=== PATIENT | female | born 1955 | race Caucasian/White ===

== ENCOUNTER 2017-01-29 22:13 | Inpatient (IN) | payer OTHER ==
[2017-01-29] MEDS ORDERED: Aspirin Low Dose CHEW TAB* 81 MG PO ONE (23:00)
[2017-01-29 23:08] LABS: Hematocrit 19 % (35-47); Mean Corpuscular HGB Conc 31 g/dl (31-36); Mean Corpuscular Hemoglobin 28 pg (27-31); Mean Platelet Volume 9 um3 (7.4-10.4); Red Cell Distribution Width 20 % (10.5-15)
[2017-01-29] MEDS ORDERED: Nitroglycerin TAB 0.4 MG* 0.4 MG TAB SL ONE (23:13)
[2017-01-29 23:23] LABS: Comments Flag Yes
[2017-01-29 23:25] LABS: Mean Corpuscular Volume 91 fL (80-97); White Blood Count 12.3 10^3/ul (3.5-10.8)
[2017-01-29 23:26] LABS: Hemoglobin 5.9 g/dl (12.0-16.0)
[2017-01-29 23:27] LABS: Add Diff/Slide Review? Slide Review Added
[2017-01-29 23:37] LABS: ALT 29 U/L (7-52); AST 66 U/L (13-39); Albumin 3.9 g/dL (3.2-5.2); Alkaline Phosphatase 59 U/L (34-104); Anion Gap 10 mmol/L (2-11); BUN/Creatinine Ratio 28.2 (8-20); Blood Urea Nitrogen 22 mg/dL (6-24); CO2 Carbon Dioxide 21 mmol/L (22-32); Calcium 9.2 mg/dL (8.6-10.3); Chloride 98 mmol/L (101-111); EGFR African American 95.9 (>60); EGFR Non-African American 74.6 (>60); Globulin 3.7 g/dL (2-4); Glucose 238 mg/dL (70-100); Magnesium 1.8 mg/dL (1.9-2.7); Potassium 3.9 mmol/L (3.5-5.0); Sodium 129 mmol/L (133-145); Total Protein 7.6 g/dL (6.4-8.9)
--- NOTE | 2017-01-29 23:37 | ED ---
Annetta Lake Alfonso, scribed for Antoni Campuzano MD on 01/29/17 at 2302 . Complex/Multi-Sys Presentation - HPI Summary HPI Summary: This patient is a 61 year old female presenting to [facility] c/o a cough for 3 days. She reports "not feeling well generally." Symptoms aggravated by exertion and alleviated by nothing. She reports CP secondary to cough which radiates to her shoulder blades, syncopal episodes, headaches, nausea, and back pain. PMHx of HTN. - History Of Current Complaint Chief Complaint: EDGeneral Time Seen by Provider: 01/29/17 22:56 Hx Obtained From: Patient Onset/Duration: Sudden Onset, Lasting Days - 3 days, Still Present Timing: Constant, Days - 3 days Severity Currently: Moderate Severity Initially: Moderate Aggravating Factor(s): Exertion Alleviating Factor(s): Nothing Associated Signs And Symptoms: Positive: Syncope, Headache, Cough, Chest Pain - Secondary to cough and radiation to shoulder blades, Nausea, Back Pain - Allergies/Home Medications Allergies/Adverse Reactions: Allergies Allergy/AdvReac Type Severity Reaction Status Date / Time No Known Allergies Allergy Verified 01/29/17 22:34 PMH/Surg Hx/FS Hx/Imm Hx Endocrine/Hematology History: Reports: Hx Diabetes - type 2 Cardiovascular History: Reports: Hx Hypercholesterolemia, Hx Hypertension Denies: Hx Angina, Hx Coronary Artery Disease, Hx Myocardial Infarction, Hx Valvular Heart Disease Respiratory History: Reports: Hx Asthma Denies: Hx Chronic Obstructive Pulmonary Disease (COPD) History: Denies: Hx Dialysis Sensory History: Reports: Hx Contacts or Glasses Opthamlomology History: Reports: Hx Contacts or Glasses - Cancer History Hx Chemotherapy: No Hx Radiation Therapy: No Infectious Disease History: No Infectious Disease History: Reports: Hx Hepatitis - hypercholesterolemia Denies: Traveled Outside the [place] in Last 30 Days - Family History Known Family History: Positive: Diabetes - Social History Alcohol Use: Rare Substance Use Type: Reports: None Smoking Status (MU): Never Smoked Tobacco Review of Systems Positive: Chest Pain - CP secondary to cough which radiates to her shoulder blades Positive: Cough Positive: Nausea Positive: Arthralgia - Back pain Positive: Headache, Syncope All Other Systems Reviewed And Are Negative: Yes Physical Exam Triage Information Reviewed: Yes Vital Signs On Initial Exam: Initial Vitals Temp Pulse Resp BP Pulse Ox 97.2 F 102 16 161/69 99 01/29/17 22:25 01/29/17 22:25 01/29/17 22:25 01/29/17 22:25 01/29/17 22:25 Vital Signs Reviewed: Yes Appearance: Positive: No Pain Distress - pale appearing Skin: Positive: Pale Head/Face: Positive: Normal Head/Face Inspection Eyes: Positive: STEVE ENT: Positive: Hearing grossly normal Neck: Positive: Supple Respiratory/Lung Sounds: Positive: Breath Sounds Present Cardiovascular: Positive: RRR Abdomen Description: Positive: Nontender, No Organomegaly, Soft Bowel Sounds: Positive: Present Musculoskeletal: Positive: Strength/ROM Intact Neurological: Positive: Sensory/Motor Intact Psychiatric: Positive: Affect/Mood Appropriate - Morton Coma Scale Coma Scale Total: 15 Diagnostics - Vital Signs Vital Signs Temp Pulse Resp BP Pulse Ox 01/29/17 22:25 97.2 F 102 16 161/69 99 - Laboratory Lab Results: Lab Results 01/29/17 01/29/17 Range/Units 22:58 22:58 WBC 12.3 H (3.5-10.8) 10^3/ul RBC 2.10 L (4.0-5.4) 10^6/ul Hgb 5.9 L* (12.0-16.0) g/dl Hct 19 L (35-47) % MCV 91 (80-97) fL MCH 28 (27-31) pg MCHC 31 (31-36) g/dl RDW 20 H (10.5-15) % Plt Count 185 (150-450) 10^3/ul MPV 9 (7.4-10.4) um3 Neut % (Auto) 61.0 (38-83) % Lymph % (Auto) 28.7 (25-47) % Gray % (Auto) 9.0 (1-9) % Eos % (Auto) 0.6 (0-6) % Baso % (Auto) 0.7 (0-2) % Absolute Neuts (auto) 7.5 (1.5-7.7) 10^3/ul Absolute Lymphs (auto) 3.5 (1.0-4.8) 10^3/ul Absolute Monos (auto) 1.1 H (0-0.8) 10^3/ul Absolute Eos (auto) 0.1 (0-0.6) 10^3/ul Absolute Basos (auto) 0.1 (0-0.2) 10^3/ul Absolute Nucleated RBC 0.23 10^3/ul Nucleated RBC % 1.9 INR (Anticoag Therapy) 1.19 H (0.89-1.11) Result Diagrams: 01/29/17 22:58 01/29/17 22:58 Lab Statement: Any lab studies that have been ordered have been reviewed, and results considered in the medical decision making process. - Radiology CXR Radiology Interpretation Completed By: ED Physician - EKG 2240 Cardiac Rate: NL - BPM 98 EKG Rhythm: Sinus Rhythm ST Segment: Non-Specific - depression v3 Re-Evaluation - Re-Evaluation First Eval Re-Evaluation Time: 23:29 Comment: Discussed lab results and admission with patient. Pt is agreeable. case d/w hospitalist Complex Multi-Symp Course/Dx - Diagnoses Provider Diagnoses: ACS (acute coronary syndrome), Anemia - Physician Notifications Discussed Care Of Patient With: Tapan Collazo Time Discussed With Above Provider: 23:35 Instructed by Provider To: Admit As Inpatient - Dr. Collazo (Hospitalist) agrees to admit the patient. - Critical Care Time Critical Care Time: 30-74 min Discharge - Discharge Plan Condition: Guarded Disposition: ADMITTED TO [facility] The documentation as recorded by the Annetta rodriguez Alfonso accurately reflects the service I personally performed and the decisions made by me, Antoni Campuzano MD.
[2017-01-29 23:44] LABS: Troponin I 3.97 ng/mL (<0.04)
[2017-01-29 23:48] LABS: Hypochromasia 3+; Polychromasia 1+
[2017-01-29 23:49] LABS: Immature Retic Fraction 0.69; Tear Drop Cells 1+
--- NOTE | 2017-01-29 23:51 | HP ---
H&P (Free Text) History and Physical: PCP: Allison Pinto MD Date/Time of Evaluation: 01/29/2017 2345 CC: malaise & chest pain HPI: Mrs Moreira is a 61YO female HX CAD, DM2, iron deficiency anemia who presents reporting onset morning of progressive fatigue and light- headedness like she may "pass out" with activity. She has had chest pressure radiating to the L shoulder in the past. This began again today, but would not go away as it has in the past. Of note she had a cardiac cath via Carlos Roberts MD cardiology 10/2016 revealing severe, subtotal RC occlusion with collaterals, a 20-30% distal left main lesion, and a 30% proximal circumflex lesion treated medically. EF 55%, no notable valvular disease. She has some SOB (not beyond her baseline) and nausea, but denies F/C, sweats, palpitations, abdominal pain, black/bloody stools, or other issues. She is currently chest pain free. Additionally, she underwent EGD/colonscopy & capsule endoscopy within the last month revealing only gastric erosions which appeared more significant on capsule endoscopy than they had on the earlier EGD. She denies taking routing aspirin, ibuprofen, or naproxen. Although, she did take one dose of naproxen today for a headache. She denies alcohol consumption. As her vitals are good, particularly her blood pressure is mildly hypertensive with only a mild tachycardia in the 100s in the setting of no melena or bloody stools, this does not appear to be an active, high flow bleed and I do not feel she requires transfer to another facility for emergency GI consult. Will admit to ICU for NSTEMI & subacute severe anemia, transfuse 2units pRBCs, give crystalloid support, & pantoprazole bolus/GTT. She was given aspirin in the ED for her chest pain prior to lab returning her level of anemia, but we will not be able to utilize heparin GTT or beta tyler due to the risk of precipitating a more active GI bleed or hypotension, respectively. PMedHx CAD asthma DM2 HTN HLD chronic L rotator cuff tear GERD depression/anxiety Ambulatory Orders Nursing to reconcile. Albuterol [Proair Hfa] 2 puff INH Q4H PRN 10/23/12 Amitriptyline TAB* [Elavil TAB*] 25 mg PO BEDTIME PRN 10/23/12 Fluticasone HFA 220 mcg(NF) [Flovent Hfa 220 Mcg(NF)] 2 puff .SEE ORDER BID Metoprolol Succinate XL TAB* [Toprol XL TAB*] 50 mg PO DAILY 10/23/12 Montelukast Sodium TAB* [Singulair 10 MG TAB*] 10 mg PO BEDTIME 10/23/12 Multiple Vitamin [Multi-Vitamins] 1 tab PO DAILY 10/23/12 Rosuvastatin Calcium [Crestor] 10 mg PO BEDTIME 10/23/12 Diltiazem HCl 120 mg PO DAILY 10/26/16 Estrogens/Medroxypr 0.3(NF) [Prempro 0.3/1.5 (NF)] 1 tab PO SEE INSTRUCTIONS Lantus 40 units SUBCUT BEDTIME 10/26/16 Liraglutide [Victoza] 1.8 ml SUBCUT DAILY 10/26/16 Metoprolol Succinate [Toprol Xl] 25 mg PO BEDTIME 10/26/16 Probiotic Product [Probiotic] 1 tab PO DAILY 10/26/16 Tizanidine HCl 8 mg PO QID PRN 10/26/16 Acetaminophen TAB* [Tylenol TAB*] 650 mg PO Q4H PRN #0 tab 10/27/16 Fluticas/Salmet 115/21 HFA(NF) [Advair HFA 115/21 (NF)] 2 puff INH BID 10/27/16 Nitroglycerin TAB 0.4 MG* 0.4 mg SL Q5M PRN #0 tab 10/27/16 Omeprazole CAP* [Prilosec CAP* 20 MG] 20 mg PO DAILY 12/09/16 metFORMIN* [Glucophage 500 MG TAB *] 750 mg PO DAILY 12/09/16 Escitalopram (NF) [Lexapro (NF)] 10 mg PO DAILY 12/13/16 Isosorbide Mononitrate ER TAB* [Imdur ER TAB*] 30 mg PO DAILY 12/13/16 Mometasone 220 MCG MDI * [Asmanex 220 MCG MDI *] 1 puff INH DAILY 12/13/16 Allergies No Known Allergies Allergy (Verified 01/29/17 22:34) SurgHx L rotator cuff repair abdominoplasty x2 SocHx: no tobacco, alcohol, or recreational drug HX; lives with her ; 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; full code status FamHx: Mother: asthma, HTN, HLD; Father: Alzheimer's, HTN, HLD; paternal GM: passed in her 50s of CAD; otherwise positive for DM2 ROS: as above, otherwise reviewed and all were negative Constitutional: NAD, normally developed, overweight white female vitals: Vital Signs Temp 36.2 C 01/29/17 22:25 Pulse 105 01/29/17 23:00 Resp 11 01/29/17 23:00 BP 149/75 01/29/17 23:00 Pulse Ox 99 01/29/17 23:00 Intake & Output 01/28/17 01/29/17 01/29/17 23:59 11:59 23:59 Weight 81.647 kg HEENM: atraumatic; sclera/conjunctiva: non-icteric/clear; hearing: clinically intact; oropharynx: clear, mucosa tacky Neck: soft tissue: non-tender, no nuchal rigidity; thyroid: normal Pulmonary: clear to auscultation bilaterally, good aeration, no accessory muscle use CV: RR/RR, normal S1S2, no carotid bruit, no jugular venous distention, 2+ B DP/ PT, no edema Abdominal: soft, non-distended, non-tender, no rebound/guarding/rigidity, normoactive bowel sounds, no hepatosplenomegaly or masses, no costovertebral angle tenderness Musculoskeletal: general: grossly intact; gait: no ambulation 2nd severe anemia & NSTEMI Integumental: pale & warm; otherwise normal appearance and texture of exposed skin Psychiatric orientation: AA&O to PPS affect: calm mood: cooperative eye contact: good content: reliable responses: timely insight: fair to good Testing: Lab Results 01/29/17 01/29/17 01/29/17 Range/Units 22:58 22:58 22:58 WBC 12.3 H (3.5-10.8) 10^3/ul RBC 2.10 L (4.0-5.4) 10^6/ul RBC (Retic) 2.10 L (4.6-6.2) 10^6/ul Hgb 5.9 L* (12.0-16.0) g/dl Hct 19 L (35-47) % HCT (Retic) 19 L (35-47) % MCV 91 (80-97) fL MCH 28 (27-31) pg MCHC 31 (31-36) g/dl RDW 20 H (10.5-15) % Plt Count 185 (150-450) 10^3/ul MPV 9 (7.4-10.4) um3 Neut % (Auto) 61.0 (38-83) % Lymph % (Auto) 28.7 (25-47) % Reagan % (Auto) 9.0 (1-9) % Eos % (Auto) 0.6 (0-6) % Baso % (Auto) 0.7 (0-2) % Absolute Neuts (auto) 7.5 (1.5-7.7) 10^3/ul Absolute Lymphs (auto) 3.5 (1.0-4.8) 10^3/ul Absolute Monos (auto) 1.1 H (0-0.8) 10^3/ul Absolute Eos (auto) 0.1 (0-0.6) 10^3/ul Absolute Basos (auto) 0.1 (0-0.2) 10^3/ul Absolute Nucleated RBC 0.23 10^3/ul Nucleated RBC % 1.9 Normal RBC Morphology Not Reportable Polychromasia 1+ Hypochromasia 3+ Tear Drop Cells 1+ Retic Count, Calc 10.1 H (0.5-1.5) % Corrected Retic Count 4.3 H (0.5-1.5) % Retic Shift Factor 2.5 Retic Production Index 1.70 Immature Retic Fraction 0.69 Mean Retic Volume 128.4 INR (Anticoag Therapy) 1.19 H (0.89-1.11) Sodium 129 L (133-145) mmol/L Potassium 3.9 (3.5-5.0) mmol/L Chloride 98 L (101-111) mmol/L Carbon Dioxide 21 L (22-32) mmol/L Anion Gap 10 (2-11) mmol/L BUN 22 (6-24) mg/dL Creatinine 0.78 (0.51-0.95) mg/dL Est GFR ( Amer) 95.9 (>60) Est GFR (Non-Af Amer) 74.6 (>60) BUN/Creatinine Ratio 28.2 H (8-20) Glucose 238 H (70-100) mg/dL Lactic Acid (0.5-2.0) mmol/L Calcium 9.2 (8.6-10.3) mg/dL Magnesium 1.8 L (1.9-2.7) mg/dL Iron Pending TIBC Pending % Saturation Pending Unsat Iron Binding Pending Ferritin Pending Total Bilirubin 0.40 (0.2-1.0) mg/dL AST 66 H (13-39) U/L ALT 29 (7-52) U/L Alkaline Phosphatase 59 (34-104) U/L Lactate Dehydrogenase Pending Troponin I 3.97 H* (<0.04) ng/mL Total Protein 7.6 (6.4-8.9) g/dL Albumin 3.9 (3.2-5.2) g/dL Globulin 3.7 (2-4) g/dL Albumin/Globulin Ratio 1.1 (1-3) Vitamin B12 Pending Folate Pending Blood Type Antibody Screen Crossmatch 01/29/17 01/29/17 Range/Units 22:58 22:58 WBC (3.5-10.8) 10^3/ul RBC (4.0-5.4) 10^6/ul RBC (Retic) (4.6-6.2) 10^6/ul Hgb (12.0-16.0) g/dl Hct (35-47) % HCT (Retic) (35-47) % MCV (80-97) fL MCH (27-31) pg MCHC (31-36) g/dl RDW (10.5-15) % Plt Count (150-450) 10^3/ul MPV (7.4-10.4) um3 Neut % (Auto) (38-83) % Lymph % (Auto) (25-47) % Reagan % (Auto) (1-9) % Eos % (Auto) (0-6) % Baso % (Auto) (0-2) % Absolute Neuts (auto) (1.5-7.7) 10^3/ul Absolute Lymphs (auto) (1.0-4.8) 10^3/ul Absolute Monos (auto) (0-0.8) 10^3/ul Absolute Eos (auto) (0-0.6) 10^3/ul Absolute Basos (auto) (0-0.2) 10^3/ul Absolute Nucleated RBC 10^3/ul Nucleated RBC % Normal RBC Morphology Polychromasia Hypochromasia Tear Drop Cells Retic Count, Calc (0.5-1.5) % Corrected Retic Count (0.5-1.5) % Retic Shift Factor Retic Production Index Immature Retic Fraction Mean Retic Volume INR (Anticoag Therapy) (0.89-1.11) Sodium (133-145) mmol/L Potassium (3.5-5.0) mmol/L Chloride (101-111) mmol/L Carbon Dioxide (22-32) mmol/L Anion Gap (2-11) mmol/L BUN (6-24) mg/dL Creatinine (0.51-0.95) mg/dL Est GFR ( Amer) (>60) Est GFR (Non-Af Amer) (>60) BUN/Creatinine Ratio (8-20) Glucose (70-100) mg/dL Lactic Acid 2.7 H* (0.5-2.0) mmol/L Calcium (8.6-10.3) mg/dL Magnesium (1.9-2.7) mg/dL Iron TIBC % Saturation Unsat Iron Binding Ferritin Total Bilirubin (0.2-1.0) mg/dL AST (13-39) U/L ALT (7-52) U/L Alkaline Phosphatase (34-104) U/L Lactate Dehydrogenase Troponin I (<0.04) ng/mL Total Protein (6.4-8.9) g/dL Albumin (3.2-5.2) g/dL Globulin (2-4) g/dL Albumin/Globulin Ratio (1-3) Vitamin B12 Folate Blood Type A Positive Antibody Screen Pending Crossmatch See Detail ECG, personally reviewed: NSR rate 83, no ischemia CXR, personally reviewed: no acute process R&L heart cath (10/2016): CONCLUSION: 1. Severe coronary artery disease with subtotally occluded right coronary artery which was small vessel ostial to proximal segment with left to right collaterals. 2. Mild 20% to 30% noncritical disease of the distal left main and mild 30% disease of the proximal left circ. 3. Normal left ventricular systolic function with an EF 55%. 4. There is no significant aortic stenosis by hemodynamics. 5. No significant pulmonary arterial hypertension. 6. No intracardiac shunts. 7. Normal cardiac output state. 8. Hemostasis obtained with the Mynx device successfully to the right femoral artery. colonoscopy & EGD (12/2016): IMPRESSION: 1. Complete colonoscopy into the cecum. 2. Absolutely terrible quality preparation. 3. No lesions were seen, however, again absolutely terrible quality preparation. 4. Patient is due for a repeat colonoscopy in ten years from now; however, I would seriously consider not performing any further colonoscopies on her. The patient has severe adhesions and a very large abdominoplasty. This made the colonoscopy extremely difficult. 5. Complete upper endoscopy into the distal duodenum with biopsies. 6. Gastric erosion, status post biopsy. 7. I will follow-up on all the biopsies and report back to the patient at that time. capsule endoscopy (01/12/2017): PROCEDURE: After the small bowel capsule endoscopy procedure was explained to the patient and a small bowel x-ray did not reveal any strictures, the patient did present to the [facility] and swallowed the capsule. Approximately eight hours of recorded data were retrieved and viewed. The last [id number] hours appeared to be all in the colon and the images were very poor due to the poor quality of the preparation. The quality of the prep in the small bowel was suboptimal; however , no obvious lesions were seen. The one remarkable finding was in the stomach. There were numerous erosions within the stomach. She did have erosions on her EGD. These appeared more prominent this time around in the small bowel capsule endoscopy. I will need to discuss with the patient whether or not she is taking any nonsteroidals. I do see that her CLOtest from the upper endoscopy was negative. I will discuss these findings with the patient, but likely the source for her anemia is coming from the gastric erosions. Impression: 61F presenting with severe anemia suspect 2nd GI bleeding & NSTEMI DIAGNOSIS & PLAN Primary severe anemia, suspect GI bleeding : type, cross, & give 2units pRBCs : trend H&H : recent ECG w/ gastric erosions confirmed & ? worse on subsequent capsule endoscopy : pantoprazole bolus/GTT : recent C-scope with very poor prep, unrevealing NSTEMI, suspect 2nd demand due to severe anemia; HX CAD : aspirin given in ED : no heparin 2nd severe anemia : no beta tyler 2nd risk of hypotension w/ severe anemia : supplemental oxygen : telemetry : ICU monitoring : ECHO in AM : NPO x/ meds w/ sips of H2O, until continued clinical stability demonstrated : cardiology consult in AM : trend troponin acute cystitis w/ hematuria : IV ceftriaxone : urine CX Secondary asthma : PRN albuterol neb DM2 : update A1c : basal/correctional insulin while NPO HTN : review meds once reconciled HLD : review meds once reconciled : check fasting lipids in AM GERD : review meds once reconciled depression/anxiety : review meds once reconciled Admission Rational: inpatient for severe anemia & NSTEMI requiring ICU monitoring in patient at high risk of mortality in the outpatient setting DVTp: SCDs, no anticoagulation 2nd severe anemia ? GI bleed Code Status: full HCP:
[2017-01-29 23:52] LABS: Corrected Retic Count 4.3 % (0.5-1.5); Maturation Factor Retic 2.5
[2017-01-29 23:59] LABS: Iron 70 ug/dL (50-212); Total Iron Binding Capacity 560 mcg/dL (250-450); Transferrin 400 mg/dL (203-362)
[2017-01-30 00:16] LABS: Creatine Kinase 314 U/L (10-223)
[2017-01-30 00:21] LABS: Ferritin 25.3 ng/mL (11-307)
[2017-01-30 00:25] LABS: Folate > 20.00 ng/mL (>3.99); Vitamin B12 435 pg/mL (180-914)
[2017-01-30] MEDS ORDERED: Morphine INJ* 2 MG/ML 1 ML SYRINGE IV PRN (00:59)
[2017-01-30] MEDS ORDERED: Ondansetron INJ* 2 MG/ML VIAL IV PRN (00:59)
[2017-01-30] MEDS ORDERED: Acetaminophen TAB* 325 MG PO PRN (00:59)
[2017-01-30] MEDS ORDERED: CMCS: Melatonin (NF) 3 MG TAB PO PRN (00:59)
[2017-01-30] MEDS ORDERED: Albuterol 2.5 MG/3 ML NEB.SOL* (0.083%) INH PRN (00:59)
[2017-01-30] MEDS ORDERED: NS 0.9% 1000 ML* 1,000 ML IV SCH ×2 (01:00→08:09)
[2017-01-30] MEDS ORDERED: Pantoprazole IV* 40 MG IV ONE (01:00)
[2017-01-30 01:04] LABS: Urine Bacteria 3+ (Absent); Urine Bilirubin Negative (Negative); Urine Glucose 2+(150 mg/dL) (Negative); Urine Nitrite Positive (Negative)
[2017-01-30] MEDS ORDERED: Pantoprazole IV* 40 MG ONE ×2 (01:14→01:15)
[2017-01-30] MEDS ORDERED: Magnesium Sulfate 2 GM IV* 2 GM/50 ML BAG IVPB ONE (01:16)
[2017-01-30] MEDS: Pantoprazole IV* 80 MG in NS 0.9% 250 ML* 250 ML IVPB SCH ×3 (01:35→21:39)
[2017-01-30] MEDS ORDERED: Insulin LISPRO* 1 UNITS UNIT SUBCUT ONE (01:49)
[2017-01-30] MEDS: Insulin LISPRO* 1 UNITS UNIT SUBCUT SCH ×7 (01:50→21:37)
[2017-01-30] MEDS ORDERED: Morphine INJ* 2 MG/ML 1 ML SYRINGE ONE (02:13)
[2017-01-30] MEDS ORDERED: Ondansetron INJ* 2 MG/ML VIAL ONE (02:25)
[2017-01-30] MEDS ORDERED: Iodixanol* (CONTRAST) 320 MG/ML 100 ML SDV IV ONE (03:17)
[2017-01-30] MEDS ORDERED: Atorvastatin* 80 MG TAB PO ONE (03:30)
[2017-01-30] MEDS ORDERED: Metoprolol Succinate XL TAB* 25 MG PO ONE (03:48)
[2017-01-30] MEDS ORDERED: Metoprolol Tartrate TAB* 25 MG ONE (04:00)
[2017-01-30] MEDS: cefTRIAXone VIAL(*) 1,000 MG in NS 0.9% 50 ML* 50 ML IVPB SCH (04:01)
--- NOTE | 2017-01-30 04:23 | PN ---
Progress Note - Progress Note Date of Service: 01/30/17 Note: Nursing reports increased oxygen demand from RA to 15L oxymask, no chest pain - only back pain. CTA c/a/p complete showing dependent B posterior pulmonary edema 2nd pRBCs & IVFs. I do not appreciate any retroperitoneal or intra- abdominal fluid collections or aneurysym/dissection; final read pending. Troponin up from 3.9 to 7.8. ECG shows improved ischemic changes in the judy- lateral leads felt to be demand related to severe anemia. Case discussed with Steven Hoover MD cardiology who agrees with current assessment & management, recommends considering BiPap. Will D/C IVFs, give 20mg furosemide IV, start BiPap for 1H and then attempt to wean.
[2017-01-30] MEDS ORDERED: Furosemide IV* 10 MG/ML 2 ML VIAL (20 MG) IV ONE (04:24)
[2017-01-30] MEDS ORDERED: Furosemide IV* 10 MG/ML 10 ML VIAL (100 MG) IV ONE (04:24)
[2017-01-30] MEDS ORDERED: Furosemide IV* 10 MG/ML 2 ML VIAL (20 MG) ONE (04:26)
[2017-01-30 05:55] LABS: Comments Flag Yes; Hematocrit 27 % (35-47); Hemoglobin 8.7 g/dl (12.0-16.0); Mean Corpuscular HGB Conc 32 g/dl (31-36); Mean Corpuscular Hemoglobin 29 pg (27-31); Mean Corpuscular Volume 90 fL (80-97); Mean Platelet Volume 9 um3 (7.4-10.4); Red Cell Distribution Width 18 % (10.5-15); White Blood Count 12.8 10^3/ul (3.5-10.8)
[2017-01-30 06:29] LABS: BUN/Creatinine Ratio 26.6 (8-20); Calcium 8.8 mg/dL (8.6-10.3); EGFR African American 120.5 (>60); EGFR Non-African American 93.7 (>60); HDL Cholesterol 22.5 mg/dL; Potassium 3.8 mmol/L (3.5-5.0)
[2017-01-30 06:35] LABS: Troponin I 44.32 ng/mL (<0.04)
--- NOTE | 2017-01-30 07:15 | RAD ---
INDICATION: Chest pain. COMPARISON: Comparison is made with a prior study from November 29, 2005. TECHNIQUE: Dual-energy PA and lateral views of the chest were obtained. FINDINGS: The heart is within normal limits in size. Mediastinal and hilar contours appear within normal limits. The lungs are hyperinflated and clear. No pleural effusion is seen. IMPRESSION: FINDINGS CONSISTENT WITH COPD, NO EVIDENCE FOR ACUTE FINDING.
--- NOTE | 2017-01-30 07:38 | RAD ---
INDICATION: Chest, back pain and anemia. COMPARISON: Comparison is made with a prior chest x-ray study from January 29, 2017. TECHNIQUE: A CT angiogram of the chest, abdomen and pelvis was performed with intravenous contrast following intravenous injection of 100 ml of Visipaque 320 nonionic contrast. Contiguous axial sections were obtained from the lung apices through the symphysis pubis. Images were reconstructed in the coronal and sagittal planes and in a 3-D volume rendered reformatted. FINDINGS: CT ANGIOGRAM OF THE CHEST: There is relatively homogeneous opacification of the pulmonary arteries. No intraluminal filling defect or pulmonary embolism is seen. The heart is within normal limits in size. No pericardial effusion is present. There are coronary artery calcifications present. The thoracic aorta is normal in caliber and demonstrates homogeneous contrast opacification. There is mild to moderate calcific plaque present. No significant enlarged mediastinal or hilar lymph nodes are seen. There is prominence of the interstitial markings and mild thickening of the fissures and scattered groundglass infiltrates suggestive of congestive heart failure or pneumonia. There are more focal small dependent bilateral lower lobe infiltrates with air bronchograms consistent with atelectasis or pneumonia. There are trace bilateral pleural effusions. CT ANGIOGRAM OF THE ABDOMEN AND PELVIS: The abdominal aorta is normal in caliber and demonstrates homogeneous contrast opacification. There is no evidence for dissection. There is moderate calcific plaque present. There is moderate calcific plaque at the origin of both the celiac and superior mesenteric arteries without evidence for hemodynamically significant stenosis. The inferior mesenteric artery also appears widely patent. There are single bilateral renal arteries with moderate calcific plaque at the origin of the arteries without evidence for hemodynamically significant stenosis. There is an aneurysm arising from the distal right renal artery measuring 0.8 x 0.9 cm in size. The liver has a nodular appearance suggestive of cirrhosis. There is a small 0.8 cm fluid density lesion in the lateral segment of the left hepatic lobe most consistent with a cyst. No intra or extrahepatic ductal distention is noted. The portal vein appears slightly distended at 1.4 cm. The gallbladder is distended. There are multiple calcified gallstones present. The pancreas appears to be within normal limits. The spleen is mildly enlarged. The kidneys and adrenal glands are normal in size. No hydronephrosis is seen. No significant focal renal abnormality is seen. There is mild thickening of the wall of the urinary bladder with minimal adjacent interstitial stranding suggestive of cystitis. No significant enlarged retroperitoneal lymph nodes are seen. The stomach, small and large bowel appear nondistended. The appendix appears to be within normal limits. There is no evidence for diverticulitis or colitis. No free intraperitoneal air or fluid is seen. No significant focal osseous abnormality is seen. IMPRESSION: 1. NO EVIDENCE FOR PULMONARY EMBOLISM OR AORTIC DISSECTION. 2. INTERSTITIAL INFILTRATES AND GROUNDGLASS OPACITIES AND DEPENDENT BILATERAL LOWER LOBE INFILTRATES CONSISTENT WITH PULMONARY EDEMA AND/OR PNEUMONIA. 3. THE LIVER HAS A CIRRHOTIC MORPHOLOGY AND THERE WERE FINDINGS SUGGESTIVE OF PULMONARY HYPERTENSION. 4. CHOLELITHIASIS. 5. MILD THICKENING ABOUT OF THE WALL OF THE URINARY BLADDER SUGGESTIVE OF CYSTITIS. RECOMMEND CLINICAL CORRELATION. 6. SMALL RIGHT RENAL ARTERY ANEURYSM.
[2017-01-30] MEDS ORDERED: Insulin GLARGINE(*) 1 UNITS UNIT SUBCUT SCH ×3 (08:30→21:00)
--- NOTE | 2017-01-30 08:36 | PN ---
Subjective Date of Service: 01/30/17 Interval History: No more chest pressure or nausea. No SOB. No new c/o. She denies dysuria or hematuria. She has chronic urinary frequency. She never had melena, hematemesis, or vaginal bleeding. Objective Active Medications: Acetaminophen (Tylenol Tab*) 650 mg PO Q6H PRN PRN Reason: FEVER/PAIN Albuterol (Ventolin 2.5 Mg/3 Ml Neb.Zakiya*) 2.5 mg INH Q2H PRN PRN Reason: SOB/WHEEZING Docusate Sodium (Colace Cap*) 200 mg PO BID [facility] Pantoprazole Sodium 80 mg/ (Sodium Chloride) 250 mls @ 25 mls/hr IVPB Q10H [facility] Last Admin: 01/30/17 01:35 Dose: 25 mls/hr Ceftriaxone Sodium 1,000 mg/ (Sodium Chloride) 50 mls @ 200 mls/hr IVPB Q24H [facility] Last Admin: 01/30/17 04:01 Dose: 200 mls/hr Sodium Chloride (Ns 0.9% 1000 Ml*) 1,000 mls @ 40 mls/hr IV PER RATE [facility] Insulin Glargine (Lantus(*)) 16 units SUBCUT 0830 [facility] Stop: 01/31/17 20:00 Insulin Human Lispro (Humalog*) 0 units SUBCUT Q4H [facility] PRN Reason: Protocol Last Admin: 01/30/17 06:47 Dose: 4 unit Morphine Sulfate (Morphine Inj (Syringe)*) 2 mg IV Q4H PRN PRN Reason: PAIN - MILD Last Admin: 01/30/17 02:19 Dose: 2 mg Ondansetron HCl (Zofran Inj*) 4 mg IV Q6H PRN PRN Reason: NAUSEA Last Admin: 01/30/17 02:26 Dose: 4 mg Vital Signs 01/30/17 01/30/17 01/30/17 00:05 00:09 00:11 Temperature 97.9 F Pulse Rate 106 107 Respiratory 13 15 Rate Blood Pressure (mmHg) O2 Sat by Pulse 98 99 Oximetry 01/30/17 01/30/17 01/30/17 00:15 00:18 00:20 Temperature 97.9 F Pulse Rate 107 112 Respiratory 11 13 21 Rate Blood Pressure 151/80 152/88 (mmHg) O2 Sat by Pulse 96 96 Oximetry 01/30/17 01/30/17 01/30/17 00:30 00:45 01:00 Temperature Pulse Rate 112 109 104 Respiratory 21 16 10 Rate Blood Pressure 152/88 128/79 153/75 (mmHg) O2 Sat by Pulse 96 93 93 Oximetry 01/30/17 01/30/17 01/30/17 01:15 01:30 01:45 Temperature Pulse Rate 102 100 98 Respiratory 10 11 11 Rate Blood Pressure 152/72 157/69 149/69 (mmHg) O2 Sat by Pulse 90 90 92 Oximetry 01/30/17 01/30/17 01/30/17 02:00 02:15 02:19 Temperature Pulse Rate 98 100 Respiratory 11 13 14 Rate Blood Pressure 152/71 148/71 (mmHg) O2 Sat by Pulse 93 92 Oximetry 01/30/17 01/30/17 01/30/17 02:30 02:45 03:00 Temperature Pulse Rate 97 97 Respiratory 13 10 16 Rate Blood Pressure 143/63 145/67 138/67 (mmHg) O2 Sat by Pulse 91 92 Oximetry 01/30/17 01/30/17 01/30/17 03:15 03:31 03:45 Temperature Pulse Rate 97 99 103 Respiratory 15 16 19 Rate Blood Pressure 145/66 118/60 136/61 (mmHg) O2 Sat by Pulse 90 94 89 Oximetry 01/30/17 01/30/17 01/30/17 04:00 04:15 04:30 Temperature 98.4 F Pulse Rate 96 97 90 Respiratory 19 17 20 Rate Blood Pressure 140/61 138/69 147/61 (mmHg) O2 Sat by Pulse 95 96 100 Oximetry 01/30/17 01/30/17 01/30/17 04:45 05:00 05:30 Temperature Pulse Rate 103 95 85 Respiratory 20 21 16 Rate Blood Pressure 148/69 142/66 138/63 (mmHg) O2 Sat by Pulse 100 100 100 Oximetry 01/30/17 01/30/17 01/30/17 05:45 06:00 06:15 Temperature Pulse Rate 86 83 88 Respiratory 16 10 13 Rate Blood Pressure 138/63 136/60 120/66 (mmHg) O2 Sat by Pulse 93 95 95 Oximetry 01/30/17 01/30/17 01/30/17 06:30 06:45 07:00 Temperature Pulse Rate 82 82 84 Respiratory 10 10 12 Rate Blood Pressure 132/58 134/52 136/56 (mmHg) O2 Sat by Pulse 95 95 96 Oximetry 01/30/17 01/30/17 07:15 07:40 Temperature 97.5 F Pulse Rate 88 Respiratory 14 Rate Blood Pressure 132/49 (mmHg) O2 Sat by Pulse 95 Oximetry Oxygen Devices in Use Now: Nasal Cannula Appearance: Alert, supine in ICU bed. In good spirits. Looks comfortable. Eyes: No Scleral Icterus Neck: NL Appearance and Movements; NL JVP, No Thyroid Enlargement, Masses Respiratory: Symmetrical Chest Expansion and Respiratory Effort, Clear to Auscultation, Clear to Percussion Cardiovascular: RRR, No Edema, - - 2/6 systolic murmur RSB Abdominal: NL Sounds; No Tenderness; No Distention, No Hepatosplenomegaly, - Lymphatic: No Cervical Adenopathy, No Axillary Adenopathy, No Inguinal Adenopathy, No Auricular Adenopathy, - Extremities: No Edema, No Clubbing, Cyanosis, - Neurological: Alert and Oriented x 3, NL Sensation Result Diagrams: 01/30/17 05:38 01/30/17 05:38 Additional Lab and Data: Lab Results 01/29/17 01/29/17 Range/Units 22:58 22:58 WBC 12.3 H (3.5-10.8) 10^3/ul RBC 2.10 L (4.0-5.4) 10^6/ul Hgb 5.9 L* (12.0-16.0) g/dl Hct 19 L (35-47) % MCV 91 (80-97) fL MCH 28 (27-31) pg MCHC 31 (31-36) g/dl RDW 20 H (10.5-15) % Plt Count 185 (150-450) 10^3/ul MPV 9 (7.4-10.4) um3 Neut % (Auto) 61.0 (38-83) % Lymph % (Auto) 28.7 (25-47) % Sumner % (Auto) 9.0 (1-9) % Eos % (Auto) 0.6 (0-6) % Baso % (Auto) 0.7 (0-2) % Absolute Neuts (auto) 7.5 (1.5-7.7) 10^3/ul Absolute Lymphs (auto) 3.5 (1.0-4.8) 10^3/ul Absolute Monos (auto) 1.1 H (0-0.8) 10^3/ul Absolute Eos (auto) 0.1 (0-0.6) 10^3/ul Absolute Basos (auto) 0.1 (0-0.2) 10^3/ul Absolute Nucleated RBC 0.23 10^3/ul Nucleated RBC % 1.9 INR (Anticoag Therapy) 1.19 H (0.89-1.11) Microbiology and Other Data: Microbiology 01/30/17 00:20 Nasal Screen MRSA (PCR)([facility]) - Final Nasal Mrsa Negative 01/29/17 23:45 Stool Occult Blood ([facility]) - Final Stool Assess/Plan/Problems-Billing Assessment: - Patient Problems (1) ACS (acute coronary syndrome) Current Visit: Yes Status: Acute Code(s): I24.9 - ACUTE ISCHEMIC HEART DISEASE, UNSPECIFIED SNOMED Code(s): 916094825 Comment: Discussed with Dr. Hoover. Cardiac intervention is contraindicated due to presumed bleeding source. Continue statin. (2) Anemia Current Visit: Yes Status: Acute Code(s): D64.9 - ANEMIA, UNSPECIFIED SNOMED Code(s): 488679526 Comment: Note ferritin 25.3 01/29/17. Iron sucrose 200 mg to be infused . Pt had EGD, colonoscopy and capsule study. Gastric erosions, ? bleeding source. Continue PPI infusion. GI consult Wednesday 01/31. No ASA or heparin for now. (3) Abnormal urinalysis Current Visit: Yes Status: Acute Code(s): R82.90 - UNSPECIFIED ABNORMAL FINDINGS IN URINE SNOMED Code(s): 100152764 Comment: Continue ceftriaxone pending urine C&S. (4) Diabetes Current Visit: Yes Status: Acute Code(s): E11.9 - TYPE 2 DIABETES MELLITUS WITHOUT COMPLICATIONS SNOMED Code(s): 35392656 Comment: Hold metformin. Lispro by SS, Lantus daily.
[2017-01-30] MEDS ORDERED: Iron Sucrose* 200 MG in NS 0.9% 250 ML* 250 ML IVPB ONE (08:38)
--- NOTE | 2017-01-30 09:26 | PN ---
Progress Note - Progress Note Date of Service: 01/30/17 Note: Time spent on patient care 45 minutes.
[2017-01-30] MEDS: Docusate CAP* 100 MG PO SCH ×2 (09:58→21:39)
--- NOTE | 2017-01-30 12:07 | ECHO ---
Patient: DOMINGA [facility]SON [facility] Rec#: [id number] : 1955 Date: 01/30/2017 Age: 61y Height: 168.91 cm / 66.5 in Weight: 78.93 kg / 174.0 lbs Sex: F BSA: 1.9 Room#: ICU12 Admit Date#: 01/29/2017 Type: Inpatient Referring: Tapan Collazo MD Reading: Barber Hoover MD Grants Director: Edilia Cabrera SHELIA CC: Julianne Pinto MD CC: Darek Carrizales MD Transthoracic Echocardiogram Indication: NSTEMI BP: 132/49 HR: 94 Rhythm: NSR Findings History: CAD with cath 10/2016,severe anemia,DM, asthma. Technical Comments: The study quality is good. Completed at 1139. Left Ventricle: The left ventricular chamber size is normal. Moderate concentric left ventricular hypertrophy is observed. Global left ventricular wall motion and contractility are within normal limits. There is normal left ventricular systolic function. The estimated ejection fraction is 60-65%. There is no consistent Doppler evidence of clinically significant diastolic dysfunction. Left Atrium: The left atrium is moderately dilated. Right Ventricle: The right ventricular cavity size is normal. The right ventricular global systolic function is normal. Right Atrium: The right atrial cavity size is normal. Aortic Valve: The aortic valve structure is not well visualized. The aortic valve leaflets are mildly thickened. There is no evidence of aortic regurgitation. There is mild to moderate aortic stenosis. The highest aortic valve velocity was obtained with the standard probe from the A5C view. Mitral Valve: There is anterior mitral annular calcification. The mitral valve leaflets are mildly thickened. There is mild to moderate mitral regurgitation. There is mild mitral stenosis. Tricuspid Valve: The tricuspid valve leaflets are normal. There is trace to mild tricuspid regurgitation. There is evidence of moderate pulmonary hypertension. Pulmonic Valve: The pulmonic valve appears normal. There is a trace pulmonic regurgitation. There is no pulmonic stenosis. Pericardium: There is no significant pericardial effusion. A pericardial fat pad is visualized. Aorta: There is no dilatation of the ascending aorta. There is no dilatation of the aortic arch. There is no dilation of the aortic root. Pulmonary Artery: The main pulmonary artery is not well visualized. Venous: The inferior vena cava appears normal in size. There is a greater than 50% respiratory change in the inferior vena cava dimension. Conclusions There is normal left ventricular systolic function. The estimated ejection fraction is 60-65%. Global left ventricular wall motion and contractility are within normal limits. The left ventricular chamber size is normal. Moderate concentric left ventricular hypertrophy is observed. The left atrium is moderately dilated. There is mild to moderate aortic stenosis. There is mild to moderate mitral regurgitation. There is mild mitral stenosis. There is evidence of moderate pulmonary hypertension. Since the prior echocardiogram completed 10/24/12, pertinent changes are prior mild aortic stenosis reported, prior mitral stenosis not reported and prior mild pulmonary hypertension reported. Measurements Name Value Normal Range RVIDd (AP) 2D 2.8 cm (0.9 - 2.6) RVDdMajor (2D) 3.2 cm (2.2 - 4.4) RAd ISD 4CH 4.8 cm (3.4 - 4.9) RA (A4C)W 3.4 cm (2.9 - 4.6) IVSd (2D) 1.4 cm (0.6 - 1) LVPWd (2D) 1.4 cm (0.6 - 1) LVIDd (2D) 4.4 cm (3.6 - 5.4) LVIDs (2D) 2.4 cm - LV FS (2D) 45 % (25 - 45) Aortic Annulus 1.5 cm (1.4 - 2.6) Ao root diameter (2D) 2.7 cm (2.1 - 3.5) Ascending Ao 3.2 cm (2.1 - 3.4) Aortic arch 2.1 cm (1.8 - 3.4) LA dimension (AP) 2D 4.5 cm (2.3 - 3.8) LAd ISD 4CH 6.6 cm (2.9 - 5.3) LA ISD 4CH W 3.8 cm (2.5 - 4.5) Name Value Normal Range LA ESV SP 4CH (A/L) 70 ml - LA ESV SP 2CH (A/L) 76 ml - LA ESV BP (A/L) 75 ml - LA ESV BP (A/L) index 39.5 ml/m2 - LA ESV SP 4CH (MOD) 66 ml - LA ESV SP 2CH (MOD) 73 ml - Name Value Normal Range MV E-wave Vmax 1.9 m/sec - MV deceleration time 238 msec - MV A-wave Vmax 1.1 m/sec - MV E:A ratio 2.68 ratio - LV septal e' Vmax 0.07 m/sec - LV lateral e' Vmax 0.12 m/sec - LV E:e' septal ratio 21.14 ratio - LV E:e' lateral ratio 15.83 ratio - Name Value Normal Range AV Vmax 3.5 m/sec - AV VTI 61.9 cm - AV peak gradient 44.88 mmHg - AV mean gradient 22.52 mmHg - LVOT diameter 2 cm - LVOT Vmax 1.6 m/sec - LVOT VTI 28.5 cm - LVOT peak gradient 10.33 mmHg - LVOT mean gradient 4.8 mmHg - BRYANT (continuity Vmax) 1.4 cm2 - BRYANT (continuity VTI) 1.4 cm2 - Name Value Normal Range MV PHT 81 msec - MR Vmax 1.8 m/sec - MR VTI 52.9 cm - MVA (PHT) 2.7 cm2 - Name Value Normal Range TR Vmax 3.6 m/sec - TR peak gradient 51 mmHg - RAP 3 mmHg - RVSP 54 mmHg - IVC diameter 1 cm - Name Value Normal Range PV Vmax 1.3 m/sec - PV peak gradient 6.91 mmHg -
[2017-01-30] MEDS ORDERED: Insulin GLARGINE(*) 1 UNITS UNIT SUBCUT ONE (12:39)
[2017-01-30 13:23] LABS: Troponin I 21.04 ng/mL (<0.04)
--- NOTE | 2017-01-30 15:51 | CONS ---
CARDIOLOGY CONSULTATION: DATE OF CONSULT: 01/30/17 REFERRING PHYSICIANS: Dr. Collazo and Dr. Hodges. REASON FOR CARDIOLOGY CONSULTATION: I was kindly asked to see this lady who has known CAD, admitted to the hospital with profound anemia, found to have non- Q-wave AK. HISTORY OF PRESENT ILLNESS: The patient is seen in the intensive care unit where she has been admitted. The patient states that she has been having 3 days of shortness of breath, dizziness and near fainting. She denies discrete chest pain but did note some vague chest pressure at times. She did not have any obvious bleeding. The patient was admitted to [facility] last night after being found to have profound anemia with hematocrit of 19. Here the patient's troponins have gone from 3.97 on admission to 7.82 to 44.32. EKG has shown sinus rhythm with diffuse ST-T wave changes. Since receiving packed red blood cell transfusion, she is feeling much better. PAST CARDIAC HISTORY: Significant for known CAD. The patient follows with my partner, Dr. Carrizales. She had a nuclear stress test completed in October 2016, which showed reversible ischemia of the inferolateral wall. Right and left heart catheterization showed severe CAD with subtotally occluded right coronary artery with left to right collaterals, mild 20% to 30% non-critical disease of the left main, and mild 30% disease of the proximal LCx with preserved LV function at 55%. No significant aortic stenosis at that time, no intracardiac shunts. She was felt best treated medically at that time. She had a transthoracic echocardiogram earlier today (please see also that report), which shows preserved LV function at 60% to 65% with no wall motion abnormalities, moderate concentric left ventricular hypertrophy, moderate left atrial dilatation, [id number] aortic stenosis, [id number] mitral regurgitation, mild mitral stenosis, moderate pulmonary hypertension. When compared to prior echocardiogram completed 10/24/12, pertinent changes are prior mild aortic stenosis reported, prior mild mitral stenosis not reported and prior mild pulmonary hypertension reported. PAST MEDICAL HISTORY: Other past medical history includes iron deficiency anemia and the workup has been ongoing with possible gastic erosions on recent capsule endoscopy, diabetes, hypertension, hyperlipidemia, chronic left rotator cuff tear, GERD, depression and anxiety. OUTPATIENT MEDICATIONS: Include: 1. Aspirin 324 mg once a day. 2. Melatonin 3 mg p.o. q.h.s. p.r.n. 3. Lipitor 80 mg once a day. 4. Insulin. ALLERGIES TO MEDICATIONS: None. She denies shrimp, seafood or dye allergy. FAMILY HISTORY: Negative for cardiac disease. Her both grandmothers had a history of diabetes. Her cousins have had strokes. Her father had a history of skin cancer. SOCIAL HISTORY: She does not smoke cigarettes or abuse alcohol. No illicit drugs. She was after 31 years and is now for 10 years. 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 The patient is a high school graduate. She has been advised not to do exercise by her mail carrier technician per the patient. REVIEW OF SYSTEMS: She denies history of stroke, cancer, vomiting up blood, coughing up blood, bright red blood per rectum or bleeding stomach ulcers. She has had a GI workup recently, it is unclear she has gastric erosions. When I discuss with the patient she denies renal calculi, cholelithiasis. She did take one dose of Naprosyn apparently for headache. She denies renal calculi, cholelithiasis. She has a history of asthma. She denies emphysema, pneumonia, tuberculosis. She states she had an inconclusive workup for sleep apnea. She did not use home oxygen. She has a history of diabetes and hypertension. She denies prior AK, congestive heart failure, cardiac surgery. She was told she had a heart murmur 2 years ago. She denies palpitations. She denies fainting. She denies psychiatric illnesses. She denies lupus, psoriasis, seizures, Parkinson's disease, myasthenia gravis, thyroid disorders, liver disorders, kidney disorders, heartburn symptoms, claudication symptoms, pulmonary emboli, deep venous thrombosis, peripheral edema. All other ROS are negative except as described above. PHYSICAL EXAM: Height 5 feet 6-1/2 inches, weight 176 pounds. Temperature 97.5 degrees Fahrenheit. Blood pressure 133/49, O2 saturation 100%, pulse 87. On general exam, she is a pleasant lady who appears to be in no acute distress at this time. HEENT shows the cranium is normocephalic and atraumatic. She has moist mucous membranes. Neck veins are not distended. There are no clear carotid bruits, but rather referred aortic murmur. No rub, no bruits. No significant kyphoscoliosis on back exam. Affect is appropriate. She appears oriented. Lungs are clear to auscultation. No wheezes and no rales. Cardiac Exam: S1, S2. Regular rate. 2/6 systolic ejection murmur heard with preserved aortic component of the second heart sound. No rub nor gallop. PMI is nondisplaced. Abdomen: Soft, nondistended, appears benign. Extremities with trivial peripheral edema. Pulses appear grossly intact. DIAGNOSTIC STUDIES/LAB DATA: The patient had a CTA of chest, abdomen, pelvis earlier today which showed no evidence of pulmonary embolism or aortic dissection with interstitial infiltrates consistent with pulmonary edema and/or pneumonia. The cirrhotic morphology and findings suggestive of pulmonary hypertension, cholelithiasis and possible cystitis. A 12-lead EKG reviewed from 01/30/17 at 3:52 a.m. which shows sinus rhythm at 97 beats per minute with diffuse ST-T wave changes that appears similar, on followup EKG at 6:40 a.m. perhaps a little less. These ST-T wave changes are new from her baseline EKG completed 10/12/16. Sodium 129, potassium 3.8, chloride 98, bicarbonate 22, BUN 17, creatinine 0.64 , glucose 218, lactic acid was 2.7 on admission. Troponin was 3.97 followed by 7.82, followed by 44.32. INR 1.19. White blood cell count 12.8, hematocrit was 19 on admission and followup 27 and platelet count 158,000. IMPRESSION: Ms. Moreira is a 61-year-old woman with a known history of coronary artery disease with subtotally occluded right coronary artery with left to right collaterals as well as [id number] aortic stenosis, [id number] mitral regurgitation, mild mitral stenosis, admitted with profound anemia and secondary non-Q-wave myocardial infarction, pathophysiologically most likely due to strain. The patient has significant improvement since blood transfusions per her history. RECOMMENDATIONS: 1. Continue to treat and resolve significant anemia as able. 2. Continue to avoid aspirin for now as well as beta-tyler (not sure if able to tolerate given history of asthma) and would restart when able, as well as statin. 3. No further cardiac evaluation is required at this time and it is reassuring that the patient's LV function remains preserved. 4. The patient may follow up with her usual mail carrier technician, Dr. Carrizales, post discharge. 5. Other management as per the hospitalist medicine service and I have discussed the case with Dr. Hodges. The above recommendations have been discussed with the patient. She is in agreement with these recommendations. Thank you for this kind cardiac consultation opportunity. Please don't hesitate to contact me if you have any questions or concerns regarding this very nice lady's cardiac care. [id number]/CPS #: [id number] MTDD
[2017-01-30 17:13] LABS: Hematocrit 27 % (35-47); Hemoglobin 8.4 g/dl (12.0-16.0); Mean Corpuscular HGB Conc 32 g/dl (31-36); Mean Corpuscular Hemoglobin 29 pg (27-31); Mean Corpuscular Volume 91 fL (80-97); Mean Platelet Volume 9 um3 (7.4-10.4); Red Blood Count 2.93 10^6/ul (4.0-5.4); Red Cell Distribution Width 18 % (10.5-15); White Blood Count 11.2 10^3/ul (3.5-10.8)
[2017-01-30 17:38] LABS: Add Diff/Slide Review? Slide Review Added; Comments Flag Yes
[2017-01-30 17:54] LABS: Troponin I 23.07 ng/mL (<0.04)
[2017-01-30 18:19] LABS: Eosinophils % 1 % (0-6); Immature Granulocytes 1 % (0-9); Neutrophil % 80 % (38-83)
[2017-01-30 18:20] LABS: Tear Drop Cells 1+
[2017-01-30 18:21] LABS: Polychromasia 3+
[2017-01-30 18:22] LABS: Add Path Review? YES
[2017-01-31] MEDS: Insulin LISPRO* 1 UNITS UNIT SUBCUT SCH ×6 (02:10→22:09)
[2017-01-31] MEDS: cefTRIAXone VIAL(*) 1,000 MG in NS 0.9% 50 ML* 50 ML IVPB SCH (02:28)
[2017-01-31 06:38] LABS: Hematocrit 22 % (35-47); Hemoglobin 7.2 g/dl (12.0-16.0); Mean Corpuscular HGB Conc 32 g/dl (31-36); Mean Corpuscular Hemoglobin 29 pg (27-31); Mean Corpuscular Volume 92 fL (80-97); Mean Platelet Volume 9 um3 (7.4-10.4); Red Blood Count 2.44 10^6/ul (4.0-5.4); Red Cell Distribution Width 19 % (10.5-15); White Blood Count 7.3 10^3/ul (3.5-10.8)
[2017-01-31 06:56] LABS: Calcium 8.2 mg/dL (8.6-10.3); EGFR African American 129.9 (>60); Potassium 3.3 mmol/L (3.5-5.0)
[2017-01-31 07:06] LABS: Troponin I 8.02 ng/mL (<0.04)
--- NOTE | 2017-01-31 07:39 | PN ---
Subjective Date of Service: 01/31/17 Interval History: No chest pressure, SOB, cough. No new c/o, anxious to go home. Objective Active Medications: Acetaminophen (Tylenol Tab*) 650 mg PO Q6H PRN PRN Reason: FEVER/PAIN Last Admin: 01/30/17 12:01 Dose: 650 mg Albuterol (Ventolin 2.5 Mg/3 Ml Neb.Zakiya*) 2.5 mg INH Q2H PRN PRN Reason: SOB/WHEEZING Docusate Sodium (Colace Cap*) 200 mg PO BID [facility] Last Admin: 01/30/17 21:39 Dose: 200 mg Pantoprazole Sodium 80 mg/ (Sodium Chloride) 250 mls @ 25 mls/hr IVPB Q10H [facility] Last Admin: 01/30/17 21:39 Dose: 25 mls/hr Ceftriaxone Sodium 1,000 mg/ (Sodium Chloride) 50 mls @ 200 mls/hr IVPB Q24H [facility] Last Admin: 01/31/17 02:28 Dose: 200 mls/hr Sodium Chloride (Ns 0.9% 1000 Ml*) 1,000 mls @ 40 mls/hr IV PER RATE [facility] Last Admin: 01/30/17 16:49 Dose: 40 mls/hr Insulin Glargine (Lantus(*)) 22 units SUBCUT 0830 [facility] Stop: 01/31/17 20:00 Insulin Human Lispro (Humalog*) 0 units SUBCUT Q4H [facility] PRN Reason: Protocol Last Admin: 01/31/17 05:32 Dose: Not Given Metoprolol Succinate (Toprol Xl Tab*) 12.5 mg PO BID [facility] Morphine Sulfate (Morphine Inj (Syringe)*) 2 mg IV Q4H PRN PRN Reason: PAIN - MILD Last Admin: 01/30/17 02:19 Dose: 2 mg Ondansetron HCl (Zofran Inj*) 4 mg IV Q6H PRN PRN Reason: NAUSEA Last Admin: 01/30/17 02:26 Dose: 4 mg Potassium Chloride (Klor Con Er Tab*) 20 meq PO Q3H [facility] Stop: 01/31/17 14:30 Vital Signs 01/30/17 01/30/17 01/30/17 07:40 07:45 08:00 Temperature 97.5 F Pulse Rate 80 80 Respiratory 14 12 Rate Blood Pressure 134/51 136/52 (mmHg) O2 Sat by Pulse 96 96 Oximetry 01/30/17 01/30/17 01/30/17 08:15 08:30 08:45 Temperature Pulse Rate 83 81 82 Respiratory 12 12 14 Rate Blood Pressure 147/61 138/56 143/62 (mmHg) O2 Sat by Pulse 96 96 98 Oximetry 01/30/17 01/30/17 01/30/17 09:00 10:00 11:00 Temperature Pulse Rate 79 85 94 Respiratory 15 13 15 Rate Blood Pressure 132/48 141/55 (mmHg) O2 Sat by Pulse 100 100 94 Oximetry 01/30/17 01/30/17 01/30/17 11:09 12:00 12:01 Temperature 97.8 F Pulse Rate 95 87 Respiratory 13 13 Rate Blood Pressure 146/55 133/49 (mmHg) O2 Sat by Pulse 93 100 Oximetry 01/30/17 01/30/17 01/30/17 13:00 13:37 13:45 Temperature Pulse Rate 86 Respiratory 13 18 Rate Blood Pressure 143/52 (mmHg) O2 Sat by Pulse 100 Oximetry 01/30/17 01/30/17 01/30/17 14:00 14:47 15:00 Temperature Pulse Rate 92 98 87 Respiratory 15 20 14 Rate Blood Pressure 115/69 114/67 (mmHg) O2 Sat by Pulse 100 97 100 Oximetry 01/30/17 01/30/17 01/30/17 15:07 15:30 15:45 Temperature 96.4 F Pulse Rate 86 90 Respiratory 14 14 Rate Blood Pressure 151/54 110/67 (mmHg) O2 Sat by Pulse 100 99 Oximetry 01/30/17 01/30/17 01/30/17 16:00 16:30 17:00 Temperature Pulse Rate 90 92 Respiratory 15 16 15 Rate Blood Pressure 121/67 111/65 (mmHg) O2 Sat by Pulse 98 95 Oximetry 01/30/17 01/30/17 01/30/17 18:00 18:16 19:00 Temperature Pulse Rate 95 99 100 Respiratory 14 16 15 Rate Blood Pressure 146/48 149/53 (mmHg) O2 Sat by Pulse 98 98 97 Oximetry 01/30/17 01/30/17 01/30/17 20:00 21:00 21:49 Temperature 210.0 F Pulse Rate 113 97 97 Respiratory 24 13 14 Rate Blood Pressure 149/72 148/53 (mmHg) O2 Sat by Pulse 98 93 96 Oximetry 01/30/17 01/30/17 01/31/17 22:00 23:00 00:00 Temperature Pulse Rate 103 101 102 Respiratory 12 12 14 Rate Blood Pressure 142/53 140/54 (mmHg) O2 Sat by Pulse 98 93 95 Oximetry 01/31/17 01/31/17 01/31/17 00:01 01:00 02:00 Temperature Pulse Rate 99 100 104 Respiratory 13 16 13 Rate Blood Pressure 139/54 141/51 147/59 (mmHg) O2 Sat by Pulse 94 97 97 Oximetry 01/31/17 01/31/17 01/31/17 03:00 04:00 05:00 Temperature 98.0 F Pulse Rate 103 109 108 Respiratory 13 12 15 Rate Blood Pressure 157/61 155/66 161/65 (mmHg) O2 Sat by Pulse 98 97 96 Oximetry 01/31/17 01/31/17 06:00 07:00 Temperature Pulse Rate 113 112 Respiratory 12 15 Rate Blood Pressure 159/64 166/64 (mmHg) O2 Sat by Pulse 97 98 Oximetry Oxygen Devices in Use Now: Nasal Cannula Appearance: Alert, in a chair. In good spriits. Looks comfortable. Eyes: No Scleral Icterus Respiratory: Symmetrical Chest Expansion and Respiratory Effort, Clear to Auscultation, Clear to Percussion Cardiovascular: RRR, No Edema, - - 2-3/6 systolic murmur RSB. Extremities: No Edema, No Clubbing, Cyanosis, - Skin: No Rash or Ulcers, No Nodules or Sclerosis, - Neurological: Alert and Oriented x 3, NL Sensation Result Diagrams: 01/31/17 06:17 01/31/17 06:17 Additional Lab and Data: Lab Results 01/29/17 01/29/17 Range/Units 22:58 22:58 WBC 12.3 H (3.5-10.8) 10^3/ul RBC 2.10 L (4.0-5.4) 10^6/ul Hgb 5.9 L* (12.0-16.0) g/dl Hct 19 L (35-47) % MCV 91 (80-97) fL MCH 28 (27-31) pg MCHC 31 (31-36) g/dl RDW 20 H (10.5-15) % Plt Count 185 (150-450) 10^3/ul MPV 9 (7.4-10.4) um3 Neut % (Auto) 61.0 (38-83) % Lymph % (Auto) 28.7 (25-47) % [place] % (Auto) 9.0 (1-9) % Eos % (Auto) 0.6 (0-6) % Baso % (Auto) 0.7 (0-2) % Absolute Neuts (auto) 7.5 (1.5-7.7) 10^3/ul Absolute Lymphs (auto) 3.5 (1.0-4.8) 10^3/ul Absolute Monos (auto) 1.1 H (0-0.8) 10^3/ul Absolute Eos (auto) 0.1 (0-0.6) 10^3/ul Absolute Basos (auto) 0.1 (0-0.2) 10^3/ul Absolute Nucleated RBC 0.23 10^3/ul Nucleated RBC % 1.9 INR (Anticoag Therapy) 1.19 H (0.89-1.11) Microbiology and Other Data: Microbiology 01/30/17 00:20 Nasal Screen MRSA (PCR)([facility]) - Final Nasal Mrsa Negative 01/29/17 23:45 Stool Occult Blood ([facility]) - Final Stool Assess/Plan/Problems-Billing Assessment: - Patient Problems (1) ACS (acute coronary syndrome) Current Visit: Yes Status: Acute Code(s): I24.9 - ACUTE ISCHEMIC HEART DISEASE, UNSPECIFIED SNOMED Code(s): 520698534 Comment: Discussed with Dr. Hoover. Cardiac intervention is contraindicated due to presumed bleeding source. Continue statin. Echo shows nl LV function, no wall motion abnormality, mild to moderate and MR. Add metoprolol, isosorbide (took the later at home, rx's by Dr. Carrizales). (2) Anemia Current Visit: Yes Status: Acute Code(s): D64.9 - ANEMIA, UNSPECIFIED SNOMED Code(s): 961782842 Comment: Note ferritin 25.3 01/29/17. Iron sucrose 200 mg to be infused . Pt had EGD, colonoscopy and capsule study. Gastric erosions, ? bleeding source. Continue PPI infusion. Discussed with Dr. Gross. Repeat EGD 01/31. No ASA or heparin for now. (3) Abnormal urinalysis Current Visit: Yes Status: Acute Code(s): R82.90 - UNSPECIFIED ABNORMAL FINDINGS IN URINE SNOMED Code(s): 680995954 Comment: Continue ceftriaxone pending urine C&S. (4) Diabetes Current Visit: Yes Status: Acute Code(s): E11.9 - TYPE 2 DIABETES MELLITUS WITHOUT COMPLICATIONS SNOMED Code(s): 62202308 Comment: Hold metformin. Lispro by Reji WILLIAMus 15 U AM 01/31. Takes Victoza at home.
[2017-01-31] MEDS: Pantoprazole IV* 80 MG in NS 0.9% 250 ML* 250 ML IVPB SCH (07:50)
[2017-01-31] MEDS: Potassium Chlor TAB* 20 MEQ TAB.ER PO SCH ×3 (07:51→17:30)
[2017-01-31] MEDS: Metoprolol Succinate XL TAB* 25 MG PO SCH ×2 (08:15→21:54)
[2017-01-31] MEDS: Docusate CAP* 100 MG PO SCH ×2 (08:15→22:06)
[2017-01-31] MEDS ORDERED: Insulin GLARGINE(*) 1 UNITS UNIT SUBCUT ONE (08:41)
[2017-01-31] MEDS: Isosorbide Mononitrate ER TAB* 30 MG PO SCH (09:09)
[2017-01-31] MEDS ORDERED: fentaNYL* 50 MCG/ML 2 ML VIAL (100 MCG VIAL) ONE (14:33)
[2017-01-31] MEDS ORDERED: Midazolam* 1 MG/ML 10 ML VIAL (10 MG) ONE (14:33)
[2017-01-31] MEDS ORDERED: Metoprolol Tartrate IV* 1 MG/ML 5 ML VIAL IV PRN (18:26)
[2017-01-31] MEDS: Metoprolol Tartrate IV* 1 MG/ML 5 ML VIAL IV PRN (18:36)
[2017-01-31 19:10] LABS: Troponin I 2.43 ng/mL (<0.04)
[2017-01-31 19:15] LABS: C Reactive Protein 23.27 mg/L (< 5.00)
[2017-01-31] MEDS: Omeprazole CAP* 20 MG PO SCH (21:52)
[2017-01-31] MEDS: ceFUROXime TAB(*) 250 MG PO SCH (21:53)
[2017-01-31] MEDS ORDERED: Potassium Chlor TAB* 20 MEQ TAB.ER PO ONE (22:00)
[2017-01-31 22:07] LABS: Direct Bilirubin 0.1 mg/dL (0.03-0.18); Indirect Bilirubin 0.4 mg/dL (0.3-1.0); Total Bilirubin 0.5 mg/dL (0.2-1.0)
--- NOTE | 2017-02-01 01:23 | CONS ---
CC: Julianne Pinto MD * CONSULTATION REPORT: DATE OF CONSULT: 01/31/17 REQUESTING PHYSICIAN: Julianne Pinto MD NARRATIVE: Ms. Moreira is a very pleasant 61-year-old female well known to myself. She has a history of anemia. I did perform both an EGD and a colonoscopy on her on December 13. The EGD revealed a few erosions. Colonoscopy was a very poor prep. She had severe adhesions, no abnormalities were seen. The patient then underwent a capsule endoscopy, which showed more erosions than on the EGD. The patient had stopped all of her NSAIDs by her report back in December , however, she became more anemic and came to the hospital couple of days ago, found to have an CO and now is being evaluated for worsening anemia. She again denies any nonsteroidals. MEDICATIONS: Include: 1. Metoprolol. 2. Advair. 3. Amitriptyline. 4. Ventolin. 5. Cartia. 6. Metformin. 7. Victoza. 8. Lantus. 9. Omeprazole 20 mg a day. 10. Montelukast. 11. Prempro. PAST MEDICAL HISTORY: Significant for diabetes, cardiomyopathy, hypertension. PAST SURGICAL HISTORY: Surgeries include , abdominoplasty, rotator cuff surgery. FAMILY HISTORY: Significant for arthritis, macular degeneration, dementia. REVIEW OF SYSTEMS: Twelve systems were reviewed. Other than that mentioned in the HPI were unremarkable. PHYSICAL EXAM: Temperature is 98.7, blood pressure 149/71, pulse is 108. General: Well-appearing female in no apparent distress. Alert, oriented, pleasant, and fluent. HEENT: Mucous membranes are moist without lesions, ulcers, or exudate. Neck is supple. Trachea is midline. Head is normocephalic , atraumatic. Heart: Tachycardia. Lungs: Clear to auscultation. Abdomen: Positive bowel sounds. Soft, nontender, nondistended. No hepatosplenomegaly, masses, rebound, or guarding. DIAGNOSTIC STUDIES/LAB DATA: Labs of note, her hemoglobin went from 5.9 to 8.7 to 7.2. White count is 7.3, platelets of 105. INR is 1.19. Troponin went from 23 down to 8.2. ASSESSMENT AND PLAN: This is a pleasant 61-year-old female with a history of anemia, negative GI workup thus far except for erosions. I do wonder if the erosions could have worsened. She has now had an CO. I think we need to proceed forward with repeating her EGD and making further workup determinations based on the EGD. I will make arrangements for her EGD later on today. [id number]/[facility] #: [id number] PAT
[2017-02-01] MEDS: Potassium Chlor TAB* 20 MEQ TAB.ER PO SCH (01:36)
[2017-02-01 06:41] LABS: Hematocrit 28 % (35-47); Mean Corpuscular HGB Conc 32 g/dl (31-36); Mean Corpuscular Hemoglobin 30 pg (27-31); Mean Corpuscular Volume 93 fL (80-97); Mean Platelet Volume 9 um3 (7.4-10.4); Red Blood Count 3.02 10^6/ul (4.0-5.4); Red Cell Distribution Width 18 % (10.5-15); White Blood Count 7.5 10^3/ul (3.5-10.8)
[2017-02-01] MEDS: Insulin LISPRO* 1 UNITS UNIT SUBCUT SCH ×4 (10:01→20:50)
[2017-02-01] MEDS: Omeprazole CAP* 20 MG PO SCH ×2 (10:03→20:50)
[2017-02-01] MEDS: Aspirin Low Dose CHEW TAB* 81 MG PO SCH (10:03)
[2017-02-01] MEDS: Metoprolol Succinate XL TAB* 25 MG PO SCH (10:03)
[2017-02-01] MEDS: Docusate CAP* 100 MG PO SCH ×2 (10:03→20:49)
[2017-02-01] MEDS: Isosorbide Mononitrate ER TAB* 30 MG PO SCH (10:03)
[2017-02-01] MEDS: ceFUROXime TAB(*) 250 MG PO SCH ×2 (10:08→20:49)
--- NOTE | 2017-02-01 14:23 | PRO ---
CC: Dr. Pinto * DATE OF PROCEDURE: 01/31/17 - ROOM #442 PROCEDURE: EGD. INDICATION: Anemia. REFERRING PHYSICIAN: Dr. Hodges. MEDICATIONS GIVEN: 10 mg IV Versed, 50 mcg IV fentanyl. PROCEDURE IN DETAIL: After the EGD procedure, including the risks, benefits, and alternatives, not limited to perforation, surgery, and/or were explained to Mrs. Moreira, written consent was then obtained. IV medication was given and a bite block was placed between the teeth. An Olympus gastroscope was then inserted into the patient's mouth, advanced down the esophagus, into the stomach, and into the distal duodenum. In the esophagus at the GE junction , the Z-line was intact. No erosive esophagitis, stricture, or ring was seen. The scope was advanced through a widely patent GE junction into the body of the stomach. Retroflex view was unremarkable. Forward view also was unremarkable except there was one very small superficial appearing erosion. This looks much better than when I had last performed her upper endoscopy and capsule endoscopy. The scope was advanced through a widely patent pylorus, into the duodenal bulb and into the distal duodenum, both of which were unremarkable. The scope was then withdrawn from the patient. She tolerated the procedure well and was returned to her hospital room in stable condition. IMPRESSION: 1. Complete upper endoscopy into the distal duodenum. 2. Well-healed erosions, no real etiology for her anemia was seen here. She also had a capsule endoscopy that was nondiagnostic and a colonoscopy that was normal. I think at this point we need to look for non-GI causes of anemia. 3. We will continue to follow along. [id number]/[facility] #: [id number] PAT
--- NOTE | 2017-02-01 15:35 | PN ---
Subjective Date of Service: 02/01/17 Interval History: Ms. Moreira states that she is feeling well this afternoon. She denies chest pain , SOB, nausea, or abdominal pain. Objective Active Medications: Acetaminophen (Tylenol Tab*) 650 mg PO Q6H PRN Albuterol (Ventolin 2.5 Mg/3 Ml Neb.Zakiya*) 2.5 mg INH Q2H PRN Aspirin (Aspirin Low Dose Tab*) 81 mg PO DAILY [facility] Cefuroxime Axetil (Ceftin Tab(*)) 500 mg PO BID [facility] Docusate Sodium (Colace Cap*) 200 mg PO BID [facility] Insulin Human Lispro (Humalog*) 0 units SUBCUT ACHS [facility] Isosorbide Mononitrate (Imdur Er Tab*) 30 mg PO DAILY [facility] Metoprolol Succinate (Toprol Xl Tab*) 12.5 mg PO BID [facility] Metoprolol Tartrate (Lopressor Iv*) 5 mg IV Q6H PRN Morphine Sulfate (Morphine Inj (Syringe)*) 2 mg IV Q4H PRN Omeprazole (Prilosec Cap*) 20 mg PO BID [facility] Ondansetron HCl (Zofran Inj*) 4 mg IV Q6H PRN Vital Signs 01/31/17 01/31/17 01/31/17 16:27 16:31 16:45 Temperature 98.0 F Pulse Rate 120 120 122 Respiratory 18 18 16 Rate Blood Pressure 153/84 153/84 167/79 (mmHg) O2 Sat by Pulse 96 96 96 Oximetry 01/31/17 01/31/17 01/31/17 17:00 17:30 18:00 Temperature Pulse Rate 118 123 131 Respiratory 22 21 18 Rate Blood Pressure 152/80 158/71 164/84 (mmHg) O2 Sat by Pulse 96 96 97 Oximetry 01/31/17 01/31/17 01/31/17 18:10 18:37 18:48 Temperature 97.7 F Pulse Rate Respiratory Rate Blood Pressure 166/83 139/73 (mmHg) O2 Sat by Pulse Oximetry 01/31/17 01/31/17 01/31/17 19:00 20:00 20:06 Temperature Pulse Rate 110 Respiratory 21 Rate Blood Pressure 140/69 134/54 136/61 (mmHg) O2 Sat by Pulse 99 Oximetry 01/31/17 01/31/17 01/31/17 21:00 22:00 22:32 Temperature Pulse Rate 105 Respiratory 16 Rate Blood Pressure 128/61 120/62 (mmHg) O2 Sat by Pulse 100 Oximetry 01/31/17 02/01/17 02/01/17 23:00 00:00 00:33 Temperature 98.3 F Pulse Rate 112 Respiratory 22 16 Rate Blood Pressure 131/65 148/80 (mmHg) O2 Sat by Pulse 98 Oximetry 02/01/17 02/01/17 02/01/17 01:00 01:06 01:21 Temperature 98.1 F 97.6 F Pulse Rate 104 103 105 Respiratory 25 24 22 Rate Blood Pressure 141/67 141/67 134/70 (mmHg) O2 Sat by Pulse 99 Oximetry 02/01/17 02/01/17 02/01/17 01:25 02:00 03:00 Temperature Pulse Rate 106 112 Respiratory 24 30 Rate Blood Pressure 134/70 135/68 (mmHg) O2 Sat by Pulse 98 88 Oximetry 02/01/17 02/01/17 02/01/17 04:08 07:23 07:44 Temperature 97.9 F 99.5 F 100.0 F Pulse Rate 105 106 103 Respiratory 24 17 16 Rate Blood Pressure 139/72 130/61 129/60 (mmHg) O2 Sat by Pulse 96 95 Oximetry 02/01/17 02/01/17 02/01/17 08:00 08:31 11:26 Temperature 98.7 F Pulse Rate 112 98 Respiratory 16 14 16 Rate Blood Pressure 124/59 (mmHg) O2 Sat by Pulse 98 94 Oximetry Oxygen Devices in Use Now: None Appearance: Female sitting up in chair in NAD Eyes: No Scleral Icterus Ears/Nose/Mouth/Throat: Mucous Membranes Moist Respiratory: Symmetrical Chest Expansion and Respiratory Effort, Clear to Auscultation Cardiovascular: NL Sounds; No Murmurs; No JVD, No Edema Abdominal: NL Sounds; No Tenderness; No Distention Lymphatic: No Cervical Adenopathy Extremities: No Edema Skin: No Rash or Ulcers Neurological: Alert and Oriented x 3, NL Muscle Strength and Tone Nutrition: Taking PO's Result Diagrams: 02/01/17 05:54 01/31/17 06:17 Additional Lab and Data: Lab Results 01/29/17 01/29/17 Range/Units 22:58 22:58 WBC 12.3 H (3.5-10.8) 10^3/ul RBC 2.10 L (4.0-5.4) 10^6/ul Hgb 5.9 L* (12.0-16.0) g/dl Hct 19 L (35-47) % MCV 91 (80-97) fL MCH 28 (27-31) pg MCHC 31 (31-36) g/dl RDW 20 H (10.5-15) % Plt Count 185 (150-450) 10^3/ul MPV 9 (7.4-10.4) um3 Neut % (Auto) 61.0 (38-83) % Lymph % (Auto) 28.7 (25-47) % [place] % (Auto) 9.0 (1-9) % Eos % (Auto) 0.6 (0-6) % Baso % (Auto) 0.7 (0-2) % Absolute Neuts (auto) 7.5 (1.5-7.7) 10^3/ul Absolute Lymphs (auto) 3.5 (1.0-4.8) 10^3/ul Absolute Monos (auto) 1.1 H (0-0.8) 10^3/ul Absolute Eos (auto) 0.1 (0-0.6) 10^3/ul Absolute Basos (auto) 0.1 (0-0.2) 10^3/ul Absolute Nucleated RBC 0.23 10^3/ul Nucleated RBC % 1.9 INR (Anticoag Therapy) 1.19 H (0.89-1.11) Microbiology and Other Data: Microbiology 01/30/17 00:20 Nasal Screen MRSA (PCR)([facility]) - Final Nasal Mrsa Negative 01/29/17 23:45 Stool Occult Blood ([facility]) - Final Stool Assess/Plan/Problems-Billing Assessment: Ms. Moreira is a 61 yo female with a PMH of iron deficiency anemia with workup in October 2016 showing gastric erosions only, recent cardiac cath showing severe CAD with collaterals, and asthma who was admitted on 01/30/17 with chest pain, new worsening anemia (Hgb 5.9), and elevated troponin. - Patient Problems (1) Anemia Comment: - Note ferritin 25.3 01/29/17. - Iron sucrose 200 mg done on 01/30/17, continue ferrous sulfate. - EGD done 01/31/17 showed improvement in gastric erosions. Pt had EGD, colonoscopy and capsule study down outpatient in December and January 2017 which showed gastric erosions, but no clear bleeding source. Of note, however, the original colonoscopy was a very poor study. Continue PPI. Discussed with Dr. Gross, plan for repeat stool occult blood studies, though first had been negative. ? if patient should have repeat colonoscopy though she did not tolerate EGD well as per below. - As no clear evidence of bleeding has been identified, have asked for Hematology consult from Dr. Cedeno as well. - Repeat CBC in AM. (2) ACS (acute coronary syndrome) Comment: - Patient with chest pain, ST depressions, and re-elevation in troponin after EGD when she was briefly tachycardic to the 130s. - Appreciate cardiology consultation. Cardiac intervention continues to be contraindicated due to presumed bleeding source, aggresively looking to determine cause of anemia. Continue statin. - Echo shows nl LV function, no wall motion abnormality, mild to moderate and MR. Cardiac cath from October 2016 showed severe CAD to RC with collaterals, 20-30% distal left main, 30% proximal left circ. - Increased dose of metoprolol and added back partial dose of cardizem to help with HR control to decrease cardiac demand. Continue isosorbide. Low dose aspirin has been resumed. (3) UTI (urinary tract infection) Comment: - UA positive, culture with ecoli. - Complete course of cefuroxime. (4) Diabetes Comment: - BG 200-300s. - Increase lantus to 25 this PM. Hold metformin and victoza. Continue Lispro SSI coverage with meals. Status and Disposition: Inpatient with LOS > 2 days. Anticipate discharge to home when medically stable.
[2017-02-01] MEDS ORDERED: Metoprolol Succinate XL TAB* 25 MG PO SCH (17:58)
[2017-02-01] MEDS: Montelukast Sodium TAB* 10 MG PO SCH (20:49)
[2017-02-01] MEDS: Diltiazem CD CAP* 120 MG PO SCH (20:50)
[2017-02-01] MEDS ORDERED: Insulin GLARGINE(*) 1 UNITS UNIT SUBCUT SCH (21:00)
[2017-02-02] MEDS: Metoprolol Tartrate IV* 1 MG/ML 5 ML VIAL IV PRN (02:35)
[2017-02-02] MEDS ORDERED: Adenosine* 3 MG/ML VIAL IV PUSH ONE (02:48)
[2017-02-02] MEDS ORDERED: Adenosine* 3 MG/ML VIAL IV PUSH PRN (02:49)
[2017-02-02] MEDS ORDERED: Adenosine* 3 MG/ML VIAL ONE ×2 (02:51)
[2017-02-02] MEDS ORDERED: Diltiazem IV* 5 MG/ML 5 ML VIAL (for loading dose/IV Push) (25 MG) IV SLOW PU ONE (02:55)
[2017-02-02] MEDS ORDERED: Diltiazem DRIP* 100 MG/100 ML ADDV.BAG IVPB SCH (03:00)
[2017-02-02] MEDS ORDERED: Diltiazem IV* 5 MG/ML 5 ML VIAL (for loading dose/IV Push) (25 MG) ONE (03:01)
[2017-02-02 05:27] LABS: Corrected Retic Count 4.6 % (0.5-1.5); Hematocrit 30 % (35-47); Hemoglobin 9.7 g/dl (12.0-16.0); Immature Retic Fraction 0.57; Maturation Factor Retic 1.5; Mean Corpuscular HGB Conc 33 g/dl (31-36); Mean Corpuscular Hemoglobin 30 pg (27-31); Mean Corpuscular Volume 93 fL (80-97); Mean Platelet Volume 9 um3 (7.4-10.4); Red Blood Count 3.17 10^6/ul (4.0-5.4); Red Cell Distribution Width 18 % (10.5-15); White Blood Count 5.8 10^3/ul (3.5-10.8)
[2017-02-02 05:30] LABS: Add Diff/Slide Review? Slide Review Added; Comments Flag Yes
--- NOTE | 2017-02-02 07:27 | CONS ---
MEDICAL ONCOLOGY/HEMATOLOGY CONSULTATION NOTE: DATE OF ADMISSION: 01/29/17 DATE OF CONSULT: 02/01/17 REASON FOR CONSULTATION: Anemia. HISTORY OF PRESENT ILLNESS: Irasema Moreira is a 61-year-old female who was discovered by her primary care physician, Dr. Pinto, in August 2016 to be anemic. At that time, her hemoglobin was 8.4 with a normal MCV. At that time, iron saturation was 4%. She was started on oral iron 1 pill per day and remained on oral iron through December of 2016. In October of 2016, her hemoglobin had increased to 11.6. At times she has had an elevated RDW up to 20. She denies at any point having any blood in her stools, black or tarry stools. Because of the iron deficiency anemia, the patient did see Dr. Gross and had an EGD which showed small erosions in the stomach. Colonoscopy was also performed, was an extremely poor preparation and certainly lesions could have been easily missed. A small bowel capsule endoscopy was performed on 01/26/17 which showed that the erosions in the stomach to be more prevalent than on the EGD of December 2016. The patient underwent a cardiac cath in October of 2016. This was done after she was found to be short of breath and had a positive stress test. The cardiac cath had revealed severe coronary artery disease with subtotally occluded right coronary artery, left to right collaterals, mid 20% to 30% noncritical disease of the left main, mild 30% disease of the proximal left circumflex with a preserved ejection fraction at 55%. She was felt to be best treated medically at that time. Repeat transthoracic echocardiogram during this admission reveals preserved left ventricular function at 60% to 65% with no wall motion abnormalities. She has moderate concentric left ventricular hypertrophy, moderate left atrial dilatation, mild to moderate aortic stenosis, and mild to moderate mitral regurg. There was also moderate pulmonary hypertension. The patient was admitted at this time with her reporting shortness of breath with any activity throughout the first half of this year. No associated wheezing, but coughing associated with asthma. The week prior to admission she became much more fatigued and lightheaded, more short of breath and dizzy. She reports increasing chest pressure over the past week, worst on the day of admission. Associated with that she has a markedly elevated troponin level to 44 and is felt to have a non-Q wave myocardial infarction. She has received a total of 4 units of packed red blood cells at the time of this consultation and actually had received a start of another unit last night, which was her 3rd unit , and at that time developed a fever and this blood was not given and transfusion reaction was performed without any obvious abnormalities. With the 4 units of packed red blood cells, she has an appropriate rise in her hemoglobin and hematocrit. It should be noted on admission on 01/29/17, prior to these 4 units of blood, her hemoglobin was 5.9. A repeat upper GI endoscopy was performed which revealed again some mild gastric erosions, but no more severe and not actively bleeding compared to before. Stool guaiacs were negative x1. Going back on her old laboratory values, she had a platelet count in the 120, 000 to 130,000 in 2012 to 2014. Earlier this year her platelet count was 100, 000 and on repeat 102,000. On admission, at the time when she was stressed with the anemia, her platelet count was 185,000 and subsequently fell to 105, 000. She reports that she had taken some NSAIDs earlier in the year, but has not taken any since the time of upper GI endoscopy in December and had taken aspirin for several days in August and when she was found to be iron deficient anemic, stopped the aspirin and has not been on it since. RDW has been elevated to the mid 20s on multiple occasions earlier this year. During this admission, she has had a normal B12 and folic acid level. Her reticulocyte count is elevated with the correct retic of approximately 4%. She has a mildly elevated LDH consistent in the setting of markedly elevated CPK and troponin and could very well be from underlying cardiac issues. PAST MEDICAL HISTORY: History of coronary artery disease, history of asthma, history of diabetes mellitus for several years with reasonable control, history of hypertension, left rotator cuff tear, GERD, anxiety and depression, status post x2, status post abdominoplasty with Dr. Martin in 2004, status post rotator cuff surgery on the left. MEDICATIONS: At the time of admission include: 1. Albuterol 2 puffs q.4 hours p.r.n. 2. Amitriptyline 25 mg at bedtime. 3. Fluticasone 2 puffs. 4. Metoprolol 50 and 25 mg daily. 5. Singulair 10 mg daily. 6. Crestor 10 mg daily. 7. Diltiazem 120 mg daily. 8. Prempro daily. 9. Lantus insulin 40 units subcutaneously. 10. Victoza 1.8 mL subcutaneously daily. 11. Tizanidine 8 mg 4 times a day p.r.n. 12. Advair 2 puffs b.i.d. 13. Nitroglycerin p.r.n. 14. Omeprazole 20 mg daily. 15. Metformin 500 mg to 750 mg daily. 16. Lexapro 10 mg daily. 17. Imdur 30 mg daily. 18. Asmanex 1 puff daily. ALLERGIES: None. FAMILY HISTORY: No significant history of anemias or any malignancies. SOCIAL HISTORY: The patient is a not a drinker or smoker. She lives with her . 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 REVIEW OF SYSTEMS: Energy level has been poor. She has been less active recently due to significant fatigue. Weight has been stable. No significant change in her bowel or bladder habits. Cardiac and pulmonary as above. Otherwise, review of systems is negative. PHYSICAL EXAM: A 61-year-old female in no acute distress. Vital signs are stable, pulse 105, blood pressure 140/70, afebrile, weight 178 pounds. HEENT: PERRLA, EOMI. No erythema or exudates. No scleral icterus. No palpable cervical, supraclavicular, or axillary adenopathy is noted. Lungs: Clear. Heart: Regular, rate, and rhythm without murmurs, rubs, or gallops. Abdomen: Normoactive bowel sounds. No masses, organomegaly, or tenderness. Extremities : No significant edema. Neurologic exam is without focal deficits. DIAGNOSTIC STUDIES/LAB DATA: As discussed above, following the first 3 to 4 units of packed red blood cells, hemoglobin has increased to 9.0, white count 7500, platelet count 105,000, with an MCV of 93, and an elevated RDW at 18, and prior to the transfusions the RDW having been 20. Reticulocyte elevated as noted above, with a corrected reticulocyte count of 4.3. Haptoglobin is normal at 131, INR and PTT are both essentially within normal limits. Chemistry studies revealed no significant renal dysfunction. Iron saturation at this time is 13% with iron over TIBC of 70/560. Ferritin is normal at 25. Bilirubin is normal at 0.5. Kanika test is negative. B12 of 435, folic acid greater than 20. CT scan performed during this admission reveals no significant adenopathies or organomegaly. There is a nodular appearance to the liver suggestive of cirrhosis. Small density in the left lateral hepatic lobe most consistent with a cyst. The portal vein appeared slightly dilated at 1.4 cm and the gallbladder was distended. There are multiple gallstones present. Other findings suggestive of pulmonary hypertension. No pulmonary embolism. Question of interstitial infiltrates and opacities. IMPRESSION: Anemia and thrombocytopenia on multiple occasions throughout 2017. Anemia was not present prior to this year. Mild thrombocytopenia has been present for several years. She clearly was iron deficient earlier in the year, although no source of blood loss was ever found. She has had 2 fairly unremarkable EGDs and only mild abnormalities in the gastric erosions on the past endoscopy. Colonoscopy certainly was an inadequate preparation and bleeding source in the colon certainly could not be ruled out. See Dr. Gross' s note from December of 2016. It is certainly very possible that she has other causes for anemia in addition to the iron deficiency. Reasons for this consideration include: 1. The fact that she has had thrombocytopenia on most occasions going back several years. 2. The elevated RDW and the lack of a low MCV even at times of iron deficiency. In addition, she has been found to have an elevated reticulocyte count. Because of the above, I believe further workup is in order. I would recommend a bone marrow aspirate and biopsy be performed to look for reasons for lack of production of red cells. The patient and her are agreeable to having this done tomorrow. With the elevated MCV, with no evidence for hemolytic anemia , other rarer conditions need to be looked into and with the lower platelet count and coronary artery disease PNH is also a possibility. Once the bone marrow aspirate and biopsy has been obtained, if no significant cause for the anemia is found, at that point it may be prudent to find a better preparation for full colonoscopy and hopefully will get a better look than what was obtained in December. [id number]/[facility] #: [id number] [facility] PET[facility] MEDICAL CENTEREduardo
[2017-02-02] MEDS: Insulin LISPRO* 1 UNITS UNIT SUBCUT SCH ×4 (08:57→21:08)
[2017-02-02] MEDS ORDERED: Lidocaine 2% PF * 5 ML VIAL INJ ONE (08:58)
[2017-02-02] MEDS: Metoprolol Succinate XL TAB* 50 MG PO SCH ×2 (08:59→20:29)
[2017-02-02] MEDS: Aspirin Low Dose CHEW TAB* 81 MG PO SCH (08:59)
[2017-02-02] MEDS: Citalopram TAB* 20 MG PO SCH (08:59)
[2017-02-02] MEDS: Omeprazole CAP* 20 MG PO SCH ×2 (08:59→20:29)
[2017-02-02] MEDS: Docusate CAP* 100 MG PO SCH ×2 (08:59→20:29)
[2017-02-02] MEDS: ceFUROXime TAB(*) 250 MG PO SCH ×2 (08:59→20:28)
[2017-02-02] MEDS: Isosorbide Mononitrate ER TAB* 30 MG PO SCH (08:59)
[2017-02-02] MEDS: Diltiazem CD CAP* 240 MG PO SCH (08:59)
[2017-02-02] MEDS: Ferrous Sulfate TAB* 325 MG PO SCH (08:59)
--- NOTE | 2017-02-02 10:43 | PROCNOTE ---
Hematology/Oncology Procedure Hematology/Oncology Procedure Note: Bone Marrow Biopsy: Informed consent obtained. Time out performed per protocol. Anesthesia 2% lidocaine, approx. 7.5 mLs administered with good effect. Bone marrow biopsy and aspirate performed to left posterior superior iliac crest without obvious complications. Minimal blood loss. Pt. tolerated well.
[2017-02-02 13:34] LABS: Urine Hemosiderin Negative (Negative)
--- NOTE | 2017-02-02 14:12 | PN ---
Subjective Date of Service: 02/02/17 Interval History: Ms. Moreira states that she is tired but otherwise feeling well today. She denies chest pain, SOB, nausea, or abdominal pain. Objective Active Medications: Acetaminophen (Tylenol Tab*) 650 mg PO Q6H PRN Adenosine (Adenocard*) 12 mg IV PUSH ONCE PRN Albuterol (Ventolin 2.5 Mg/3 Ml Neb.Zakiya*) 2.5 mg INH Q2H PRN Aspirin (Aspirin Low Dose Tab*) 81 mg PO DAILY CLIF Cefuroxime Axetil (Ceftin Tab(*)) 500 mg PO BID CLIF Citalopram Hydrobromide (Celexa Tab*) 20 mg PO DAILY [facility] Diltiazem HCl (Cardizem Cd Cap*) 120 mg PO BEDTIME CLIF Diltiazem HCl (Cardizem Cd Cap*) 240 mg PO DAILY [facility] Docusate Sodium (Colace Cap*) 200 mg PO BID CLIF Ferrous Sulfate (Ferrous Sulfate Tab*) 325 mg PO DAILY [facility] Diltiazem HCl (Cardizem Iv Advan*) 100 mg in 100 mls @ 10 mls/hr IVPB .PER PARAMETERS CLIF Insulin Glargine (Lantus(*)) 25 units SUBCUT BEDTIME [facility] Insulin Human Lispro (Humalog*) 0 units SUBCUT ACHS CLIF Isosorbide Mononitrate (Imdur Er Tab*) 30 mg PO DAILY [facility]IF Metoprolol Succinate (Toprol Xl Tab*) 50 mg PO BID CLIF Metoprolol Tartrate (Lopressor Iv*) 5 mg IV Q6H PRN Montelukast Sodium (Singulair Tab*) 10 mg PO BEDTIME CLIF Morphine Sulfate (Morphine Inj (Syringe)*) 2 mg IV Q4H PRN Omeprazole (Prilosec Cap*) 20 mg PO BID CLIF Ondansetron HCl (Zofran Inj*) 4 mg IV Q6H PRN Vital Signs 02/01/17 02/01/17 02/01/17 15:23 20:00 20:02 Temperature 98.8 F 99.0 F Pulse Rate 102 99 Respiratory 20 18 16 Rate Blood Pressure 126/63 141/63 (mmHg) O2 Sat by Pulse 99 99 Oximetry 02/01/17 02/02/17 02/02/17 23:43 02:30 02:52 Temperature 98.6 F 98.9 F 99.2 F Pulse Rate 102 66 97 Respiratory 20 20 18 Rate Blood Pressure 136/61 149/69 136/60 (mmHg) O2 Sat by Pulse 95 98 91 Oximetry 02/02/17 02/02/17 02/02/17 03:39 04:00 05:00 Temperature Pulse Rate Respiratory 23 17 Rate Blood Pressure (mmHg) O2 Sat by Pulse 98 Oximetry 02/02/17 02/02/17 02/02/17 06:00 07:00 07:38 Temperature 98.7 F Pulse Rate Respiratory 21 19 Rate Blood Pressure (mmHg) O2 Sat by Pulse Oximetry 02/02/17 02/02/17 02/02/17 07:57 08:00 09:00 Temperature Pulse Rate Respiratory 16 12 17 Rate Blood Pressure (mmHg) O2 Sat by Pulse Oximetry 02/02/17 02/02/17 02/02/17 09:26 10:00 11:00 Temperature Pulse Rate 96 Respiratory 16 17 17 Rate Blood Pressure (mmHg) O2 Sat by Pulse 100 Oximetry 02/02/17 02/02/17 11:06 12:00 Temperature 98.6 F Pulse Rate 85 Respiratory 16 16 Rate Blood Pressure (mmHg) O2 Sat by Pulse 97 Oximetry Oxygen Devices in Use Now: None Appearance: Female lying in bed in NAD Ears/Nose/Mouth/Throat: NL Teeth, Lips, Gums Neck: Trachea Midline Respiratory: Symmetrical Chest Expansion and Respiratory Effort, Clear to Auscultation Cardiovascular: NL Sounds; No Murmurs; No JVD, No Edema Abdominal: NL Sounds; No Tenderness; No Distention Lymphatic: No Cervical Adenopathy Extremities: No Edema Skin: No Rash or Ulcers Neurological: Alert and Oriented x 3, NL Muscle Strength and Tone Nutrition: Taking PO's Result Diagrams: 02/02/17 04:58 01/31/17 06:17 Additional Lab and Data: Lab Results 01/29/17 01/29/17 Range/Units 22:58 22:58 WBC 12.3 H (3.5-10.8) 10^3/ul RBC 2.10 L (4.0-5.4) 10^6/ul Hgb 5.9 L* (12.0-16.0) g/dl Hct 19 L (35-47) % MCV 91 (80-97) fL MCH 28 (27-31) pg MCHC 31 (31-36) g/dl RDW 20 H (10.5-15) % Plt Count 185 (150-450) 10^3/ul MPV 9 (7.4-10.4) um3 Neut % (Auto) 61.0 (38-83) % Lymph % (Auto) 28.7 (25-47) % [place] % (Auto) 9.0 (1-9) % Eos % (Auto) 0.6 (0-6) % Baso % (Auto) 0.7 (0-2) % Absolute Neuts (auto) 7.5 (1.5-7.7) 10^3/ul Absolute Lymphs (auto) 3.5 (1.0-4.8) 10^3/ul Absolute Monos (auto) 1.1 H (0-0.8) 10^3/ul Absolute Eos (auto) 0.1 (0-0.6) 10^3/ul Absolute Basos (auto) 0.1 (0-0.2) 10^3/ul Absolute Nucleated RBC 0.23 10^3/ul Nucleated RBC % 1.9 INR (Anticoag Therapy) 1.19 H (0.89-1.11) Microbiology and Other Data: Microbiology 01/30/17 00:20 Nasal Screen MRSA (PCR)(RAMILA) - Final Nasal Mrsa Negative 01/29/17 23:45 Stool Occult Blood (RAMILA) - Final Stool Assess/Plan/Problems-Billing Assessment: Ms. Moreira is a 61 yo female with a PMH of iron deficiency anemia with workup in October 2016 showing gastric erosions only, recent cardiac cath showing severe CAD with collaterals, and asthma who was admitted on 01/30/17 with chest pain, new worsening anemia (Hgb 5.9), and elevated troponin (max 44). - Patient Problems (1) Anemia Comment: - Note ferritin 25.3 01/29/17. - Continue iron sucrose daily for total of 3 days. - EGD done 01/31/17 showed improvement in gastric erosions. Pt had EGD, colonoscopy and capsule study down outpatient in December and January 2017 which showed gastric erosions, but no clear bleeding source. Of note, however, the original colonoscopy was a very poor study. Continue PPI. - Discussed with Dr. Armstrong, who will see the patient today. ? if patient should have repeat colonoscopy though she did not tolerate EGD well as per below. Have asked cardiology to assist with medical optimization before any planned procedure. - As no clear evidence of bleeding has been identified, appreciate Hematology consult, bone marrow biopsy performed today. - Repeat CBC in AM. (2) ACS (acute coronary syndrome) Comment: - Patient had episode with HR 200s overnight which was self limited. - Today HR remains elevated at approx 100-110. Increased dose of metoprolol and added back home cardizem. Continue isosorbide. Low dose aspirin has been resumed. - On arrival, trop peaked at 44 with severe anemia and Hgb 5.9. Then, had chest pain, ST depressions, and re-elevation in troponin after EGD when she was briefly tachycardic to the 130s. - Echo 01/30/17 shows nl LV function, no wall motion abnormality, mild to moderate and MR. Cardiac cath from October 2016 showed severe CAD to RC with collaterals, 20-30% distal left main, 30% proximal left circ. - Appreciate cardiology consultation. Cardiac intervention continues to be contraindicated due to presumed bleeding source, aggresively looking to determine cause of anemia. Continue statin. Dr. Davila to recommend therapy for medical optimization. (3) UTI (urinary tract infection) Comment: - UA positive, culture with ecoli. - Complete course of cefuroxime. (4) Diabetes Comment: - BG 200s. - Increase lantus to 30 this PM. Hold metformin and victoza. Continue Lispro SSI coverage with meals. (5) DVT prophylaxis Comment: - SCDs. (6) Full code status Status and Disposition: Inpatient with LOS > 2 days. Anticipate discharge to home when medically stable.
--- NOTE | 2017-02-02 16:02 | PN ---
Subjective Date of Service: 02/02/17 - CC: CONTRERAS, troponin elevation Interval History: I was asked to see patient over concerns of stress with endoscopy leading to tachycardia and re bump in troponins. Presentation reviewed with the patient and her family: Since August progressive CONTRERAS, exercise intolerance. No chest pain. On admission (01/29)) markedly anemic (HCT 19), progresive rise in troponins with peak at 44 (01/30). EGD done 01/31. Post procedure, SVT with ST depression and reproduction of the patients SOB symptoms. Last night (early this AM) with sleep, SVT on the monitor, very fast. Etiology of anemia not clear and possible repeat colonoscopy with a better prep than when done as an out patient being considered. THe pt states she feels better now, can walk in her hospital room w/o feeling winded, no orthopnea or PND. No hx dark black, bloody stool or any GI changes. Medications Active Medications: Acetaminophen (Tylenol Tab*) 650 mg PO Q6H PRN PRN Reason: FEVER/PAIN Last Admin: 01/30/17 12:01 Dose: 650 mg Adenosine (Adenocard*) 12 mg IV PUSH ONCE PRN PRN Reason: SEE COMMENTS Last Admin: 02/02/17 03:14 Dose: Not Given Albuterol (Ventolin 2.5 Mg/3 Ml Neb.Zakiya*) 2.5 mg INH Q2H PRN PRN Reason: SOB/WHEEZING Aspirin (Aspirin Low Dose Tab*) 81 mg PO DAILY [facility] Last Admin: 02/02/17 08:59 Dose: 81 mg Cefuroxime Axetil (Ceftin Tab(*)) 500 mg PO BID [facility] Last Admin: 02/02/17 08:59 Dose: 500 mg Citalopram Hydrobromide (Celexa Tab*) 20 mg PO DAILY [facility] Last Admin: 02/02/17 08:59 Dose: 20 mg Diltiazem HCl (Cardizem Cd Cap*) 120 mg PO BEDTIME [facility] Last Admin: 02/01/17 20:50 Dose: 120 mg Diltiazem HCl (Cardizem Cd Cap*) 240 mg PO DAILY [facility] Last Admin: 02/02/17 08:59 Dose: 240 mg Docusate Sodium (Colace Cap*) 200 mg PO BID [facility] Last Admin: 02/02/17 08:59 Dose: 200 mg Ferrous Sulfate (Ferrous Sulfate Tab*) 325 mg PO DAILY [facility] Last Admin: 02/02/17 08:59 Dose: 325 mg Diltiazem HCl (Cardizem Iv Advan*) 100 mg in 100 mls @ 10 mls/hr IVPB .PER PARAMETERS CLIF PRN Reason: 10 MG/HR Insulin Glargine (Lantus(*)) 30 units SUBCUT BEDTIME [facility] Insulin Human Lispro (Humalog*) 0 units SUBCUT ACHS [facility] PRN Reason: Protocol Last Admin: 02/02/17 15:45 Dose: 15 units Isosorbide Mononitrate (Imdur Er Tab*) 30 mg PO DAILY [facility] Last Admin: 02/02/17 08:59 Dose: 30 mg Metoprolol Succinate (Toprol Xl Tab*) 50 mg PO BID [facility] Last Admin: 02/02/17 08:59 Dose: 50 mg Metoprolol Tartrate (Lopressor Iv*) 5 mg IV Q6H PRN PRN Reason: HR > 120 Last Admin: 02/02/17 02:35 Dose: 5 mg Montelukast Sodium (Singulair Tab*) 10 mg PO BEDTIME [facility] Last Admin: 02/01/17 20:49 Dose: 10 mg Morphine Sulfate (Morphine Inj (Syringe)*) 2 mg IV Q4H PRN PRN Reason: PAIN - MILD Last Admin: 01/30/17 02:19 Dose: 2 mg Omeprazole (Prilosec Cap*) 20 mg PO BID [facility] Last Admin: 02/02/17 08:59 Dose: 20 mg Ondansetron HCl (Zofran Inj*) 4 mg IV Q6H PRN PRN Reason: NAUSEA Last Admin: 01/30/17 02:26 Dose: 4 mg Objective Vital Signs: Temp Pulse Resp BP Pulse Ox 98.6 F 85 16 136/60 97 02/02/17 11:06 02/02/17 11:06 02/02/17 12:00 02/02/17 02:52 02/02/17 11:06 Oxygen Devices in Use Now: None Appearance: centripitally obese woman, seated, appears comfortable, color is good. Eyes: No Scleral Icterus, PERRLA Ears/Nose/Mouth/Throat: Clear Oropharnyx, Mucous Membranes Moist Neck: NL Appearance and Movements; NL JVP, Trachea Midline Respiratory: Symmetrical Chest Expansion and Respiratory Effort, Clear to Auscultation Cardiovascular: RRR - 2-3/6 systolic murmer, mid peaking, RUSB across precordium. Abdominal: - - distended, non tender, active bowel sounds. Extremities: No Edema - 1-2 + PTP Neurological: Alert and Oriented x 3 Lines/Tubes/Other Access: Clean, Dry and Intact Peripheral IV Laboratory Results: 02/02/17 04:58 01/31/17 06:17 INR (Anticoag Therapy) 1.19 (0.89-1.11) H 01/29/17 22:58 Total Bilirubin 0.50 mg/dL (0.2-1.0) 01/31/17 18:43 Direct Bilirubin 0.10 mg/dL (0.03-0.18) 01/31/17 18:43 Indirect Bilirubin 0.4 mg/dL (0.3-1.0) 01/31/17 18:43 AST 66 U/L (13-39) H 01/29/17 22:58 ALT 29 U/L (7-52) 01/29/17 22:58 Alkaline Phosphatase 59 U/L (34-104) 01/29/17 22:58 CK-MB (CK-2) 27.8 ng/mL (0.6-6.3) H 01/29/17 22:58 Total Protein 7.6 g/dL (6.4-8.9) 01/29/17 22:58 Albumin 3.9 g/dL (3.2-5.2) 01/29/17 22:58 Globulin 3.7 g/dL (2-4) 01/29/17 22:58 Albumin/Globulin Ratio 1.1 (1-3) 01/29/17 22:58 Triglycerides 184 mg/dL 01/30/17 05:38 Cholesterol 120 mg/dL 01/30/17 05:38 LDL Cholesterol 61 mg/dL 01/30/17 05:38 HDL Cholesterol 22.5 mg/dL 01/30/17 05:38 01/30/17 01/30/17 01/30/17 02:58 05:38 12:10 Troponin I 7.82 H* 44.32 H* 21.04 H* 01/30/17 01/31/17 01/31/17 17:00 00:35 06:17 Troponin I 23.07 H* 9.25 H* 8.02 H* 01/31/17 01/31/17 02/01/17 18:43 23:32 05:54 Troponin I 2.43 H* 7.26 H* 6.54 H* Diagnostic Imaging: Echo: Dr. Hoover, EF 60-65%, moderate , full details in Dr. Hoover's consult. EKG Data: Monitor: NSR, ST, SVT as above. EDG's admission: NSR, STelevation inferior leads, STdepression precordial leads c/w inferior posterior ND. Improved ST's by 02/01. ECG 02/02/18 0230: narrow complex tachycadia 230 bpm, lateral ST depression, marked, in addition to diffuse ST/T changes. Assessment/Plan 61 yo female with CAD, occluded inferior wall dependant on collateral flow admitted with profound anemia and acute ischemia, I feel due to anemia and increased demands on the heart that overwhelmed collateral vessels. Moderate is likely contributing to poor flow to coronaries in this setting as well. Additonally intermittant very rapid SVT leads to symptoms and evidence of ischemia based on ECG. The patient is getting an ischemic work up and may need additional procedures that could stress the heart. Points of Discussion: CAD: Should be at less risk for ischemia from occluded RCA with improved hemoglobin. Continue beta and calcium blockers. Continue aggressive CAD risk factor modification. SVT: Ultimately needs EPS and probable ablation. For now, stick to safest antiarrhythmics, try Multaq, but may need amiodarone if breaks through. Keep KCl 4-4.5 (was 3.3 yesterday). : beta blockers preferable to CCB if tolerates. Anemia: If endoscopy needed, I think with antiarrhythmics on, electrolytes optimized she could procede safely, the prep would need to be done carefully avoiding electrolyte disturbances and minimizing risk of hypotension.
[2017-02-02] MEDS: Dronedarone TAB* 400 MG PO SCH ×2 (16:52→20:30)
[2017-02-02] MEDS: Montelukast Sodium TAB* 10 MG PO SCH (20:28)
[2017-02-02] MEDS: Diltiazem CD CAP* 120 MG PO SCH (20:29)
[2017-02-02] MEDS: Insulin GLARGINE(*) 1 UNITS UNIT SUBCUT SCH (21:08)
[2017-02-03 06:55] LABS: Hematocrit 30 % (35-47); Hemoglobin 9.5 g/dl (12.0-16.0); Mean Corpuscular HGB Conc 32 g/dl (31-36); Mean Corpuscular Hemoglobin 30 pg (27-31); Mean Corpuscular Volume 94 fL (80-97); Mean Platelet Volume 9 um3 (7.4-10.4); Red Blood Count 3.15 10^6/ul (4.0-5.4); Red Cell Distribution Width 19 % (10.5-15); White Blood Count 6.7 10^3/ul (3.5-10.8)
[2017-02-03] MEDS: Insulin LISPRO* 1 UNITS UNIT SUBCUT SCH ×3 (08:01→21:17)
[2017-02-03] MEDS: Docusate CAP* 100 MG PO SCH ×2 (08:03→20:31)
[2017-02-03] MEDS: Isosorbide Mononitrate ER TAB* 30 MG PO SCH (08:03)
[2017-02-03] MEDS: Diltiazem CD CAP* 240 MG PO SCH (08:03)
[2017-02-03] MEDS: Citalopram TAB* 20 MG PO SCH (08:03)
[2017-02-03] MEDS: Aspirin Low Dose CHEW TAB* 81 MG PO SCH (08:03)
[2017-02-03] MEDS: Omeprazole CAP* 20 MG PO SCH ×2 (08:03→20:31)
[2017-02-03] MEDS: ceFUROXime TAB(*) 250 MG PO SCH ×2 (08:03→20:30)
[2017-02-03] MEDS: Metoprolol Succinate XL TAB* 50 MG PO SCH ×2 (08:03→20:31)
[2017-02-03] MEDS: Dronedarone TAB* 400 MG PO SCH ×2 (08:04→20:31)
[2017-02-03] MEDS: Ferrous Sulfate TAB* 325 MG PO SCH (08:04)
--- NOTE | 2017-02-03 08:49 | PN ---
Subjective Date of Service: 02/03/17 Interval History: Ms. Moreira states that she is doing as well as can be expected but she is anxious to get home. She denies chest pain, SOB, nausea, or abdominal pain. Objective Active Medications: Acetaminophen (Tylenol Tab*) 650 mg PO Q6H PRN Adenosine (Adenocard*) 12 mg IV PUSH ONCE PRN Albuterol (Ventolin 2.5 Mg/3 Ml Neb.Zakiya*) 2.5 mg INH Q2H PRN Aspirin (Aspirin Low Dose Tab*) 81 mg PO DAILY CLIF Cefuroxime Axetil (Ceftin Tab(*)) 500 mg PO BID CLIF Citalopram Hydrobromide (Celexa Tab*) 20 mg PO DAILY CLIF Diltiazem HCl (Cardizem Cd Cap*) 120 mg PO BEDTIME CLIF Diltiazem HCl (Cardizem Cd Cap*) 240 mg PO DAILY CLIF Docusate Sodium (Colace Cap*) 200 mg PO BID CLIF Dronedarone (Multaq Tab*) 400 mg PO BID CLIF Ferrous Sulfate (Ferrous Sulfate Tab*) 325 mg PO DAILY CLIF Diltiazem HCl (Cardizem Iv Advan*) 100 mg in 100 mls @ 10 mls/hr IVPB .PER PARAMETERS CLIF Iron Sucrose 200 mg/ Sodium (Chloride) 110 mls @ 110 mls/hr IVPB ONCE ONE Insulin Glargine (Lantus(*)) 30 units SUBCUT BEDTIME CLIF Insulin Human Lispro (Humalog*) 0 units SUBCUT ACHS CLIF Isosorbide Mononitrate (Imdur Er Tab*) 30 mg PO DAILY CLIF Metoprolol Succinate (Toprol Xl Tab*) 50 mg PO BID CLIF Metoprolol Tartrate (Lopressor Iv*) 5 mg IV Q6H PRN Montelukast Sodium (Singulair Tab*) 10 mg PO BEDTIME CLIF Morphine Sulfate (Morphine Inj (Syringe)*) 2 mg IV Q4H PRN Omeprazole (Prilosec Cap*) 20 mg PO BID CLIF Ondansetron HCl (Zofran Inj*) 4 mg IV Q6H PRN Vital Signs 02/02/17 02/02/17 02/02/17 09:00 09:26 10:00 Temperature Pulse Rate 96 Respiratory 17 16 17 Rate Blood Pressure (mmHg) O2 Sat by Pulse 100 Oximetry 02/02/17 02/02/17 02/02/17 11:00 11:06 12:00 Temperature 98.6 F Pulse Rate 85 Respiratory 17 16 16 Rate Blood Pressure (mmHg) O2 Sat by Pulse 97 Oximetry 02/02/17 02/02/17 02/02/17 13:00 14:01 15:00 Temperature Pulse Rate Respiratory 14 20 17 Rate Blood Pressure (mmHg) O2 Sat by Pulse Oximetry 02/02/17 02/02/17 02/02/17 15:17 16:00 17:00 Temperature 98.8 F Pulse Rate 79 Respiratory 19 17 21 Rate Blood Pressure (mmHg) O2 Sat by Pulse 98 Oximetry 02/02/17 02/02/17 02/02/17 19:30 19:41 20:00 Temperature 98.2 F Pulse Rate 81 80 Respiratory 18 18 15 Rate Blood Pressure 116/52 (mmHg) O2 Sat by Pulse 96 97 Oximetry 02/02/17 02/03/17 02/03/17 23:35 00:00 03:50 Temperature 97.3 F 98.6 F Pulse Rate 72 76 Respiratory 16 Rate Blood Pressure 98/49 115/45 (mmHg) O2 Sat by Pulse 92 92 85 Oximetry 02/03/17 02/03/17 03:53 06:50 Temperature Pulse Rate 77 Respiratory 17 16 Rate Blood Pressure (mmHg) O2 Sat by Pulse 87 Oximetry Oxygen Devices in Use Now: None Appearance: Female sitting up on edge of bed in NAD Eyes: No Scleral Icterus Ears/Nose/Mouth/Throat: Mucous Membranes Moist Neck: Trachea Midline Respiratory: Symmetrical Chest Expansion and Respiratory Effort, Clear to Auscultation Cardiovascular: NL Sounds; No Murmurs; No JVD, No Edema Abdominal: NL Sounds; No Tenderness; No Distention Lymphatic: No Cervical Adenopathy Extremities: No Edema Skin: No Rash or Ulcers Neurological: Alert and Oriented x 3, NL Muscle Strength and Tone Nutrition: Taking PO's Result Diagrams: 02/03/17 05:45 01/31/17 06:17 Additional Lab and Data: Lab Results 01/29/17 01/29/17 Range/Units 22:58 22:58 WBC 12.3 H (3.5-10.8) 10^3/ul RBC 2.10 L (4.0-5.4) 10^6/ul Hgb 5.9 L* (12.0-16.0) g/dl Hct 19 L (35-47) % MCV 91 (80-97) fL MCH 28 (27-31) pg MCHC 31 (31-36) g/dl RDW 20 H (10.5-15) % Plt Count 185 (150-450) 10^3/ul MPV 9 (7.4-10.4) um3 Neut % (Auto) 61.0 (38-83) % Lymph % (Auto) 28.7 (25-47) % [place] % (Auto) 9.0 (1-9) % Eos % (Auto) 0.6 (0-6) % Baso % (Auto) 0.7 (0-2) % Absolute Neuts (auto) 7.5 (1.5-7.7) 10^3/ul Absolute Lymphs (auto) 3.5 (1.0-4.8) 10^3/ul Absolute Monos (auto) 1.1 H (0-0.8) 10^3/ul Absolute Eos (auto) 0.1 (0-0.6) 10^3/ul Absolute Basos (auto) 0.1 (0-0.2) 10^3/ul Absolute Nucleated RBC 0.23 10^3/ul Nucleated RBC % 1.9 INR (Anticoag Therapy) 1.19 H (0.89-1.11) Microbiology and Other Data: Microbiology 01/30/17 00:20 Nasal Screen MRSA (PCR)(RAMILA) - Final Nasal Mrsa Negative 01/29/17 23:45 Stool Occult Blood (RAMILA) - Final Stool Assess/Plan/Problems-Billing Assessment: Ms. Moreira is a 61 yo female with a PMH of iron deficiency anemia with workup in October 2016 showing gastric erosions only, recent cardiac cath showing severe CAD with collaterals, and asthma who was admitted on 01/30/17 with chest pain, new worsening anemia (Hgb 5.9), and elevated troponin (max 44). - Patient Problems (1) Anemia Comment: - Iron deficiency. - Continue iron sucrose daily for total of 3 days. - EGD done 01/31/17 showed improvement in gastric erosions. Pt had EGD, colonoscopy and capsule study down outpatient in December and January 2017 which showed gastric erosions, but no clear bleeding source. Of note, however, the original colonoscopy was a very poor study. GUIAC has been negative. Continue PPI. - Discussed with Dr. Armstrong. Plan to review preliminary results of bone marrow biopsy, if no alternate source of anemia found will proceed with colonoscopy. (2) ACS (acute coronary syndrome) Comment: - Appeciate cardiology consultation. HR well controlled thus far now on metoprolol, cardizem, and multaq. - On arrival, trop peaked at 44 with severe anemia and Hgb 5.9. Then, had chest pain, ST depressions, and re-elevation in troponin after EGD when she was briefly tachycardic to the 130s. Also had another episode of SVT with HR 200s. - Echo 01/30/17 shows nl LV function, no wall motion abnormality, mild to moderate and MR. Cardiac cath from October 2016 showed severe CAD to RC with collaterals, 20-30% distal left main, 30% proximal left circ. - Cardiac intervention continues to be contraindicated due to presumed bleeding source, aggresively looking to determine cause of anemia. - Continue isosorbide and aspirin. Continue statin. (3) UTI (urinary tract infection) Comment: - UA positive, culture with ecoli. - Complete course of cefuroxime. (4) Diabetes Comment: - BG 150-300. - Continue lantus 30 units q PM. Increase Lispro SSI coverage with meals. Hold metformin and victoza. (5) DVT prophylaxis Comment: - SCDs. (6) Full code status Status and Disposition: Inpatient with LOS > 2 days. Anticipate discharge to home when medically stable.
[2017-02-03] MEDS ORDERED: Insulin LISPRO* 1 UNITS UNIT SUBCUT SCH (08:51)
[2017-02-03] MEDS ORDERED: Potassium Chloride LIQUID* 20 MEQ PACKET PO ONE ×2 (11:51→17:00)
[2017-02-03 12:54] LABS: Magnesium 1.9 mg/dL (1.9-2.7)
[2017-02-03 13:09] LABS: Troponin I 4.45 ng/mL (<0.04)
[2017-02-03 16:00] LABS: Albumin 3.2 g/dL (3.2-5.2); BUN/Creatinine Ratio 13.8 (8-20); EGFR African American 118.4 (>60); EGFR Non-African American 92.1 (>60); Globulin 3.6 g/dL (2-4); Total Bilirubin 0.5 mg/dL (0.2-1.0); Total Protein 6.8 g/dL (6.4-8.9)
[2017-02-03] MEDS: Montelukast Sodium TAB* 10 MG PO SCH (20:31)
[2017-02-03] MEDS: Diltiazem CD CAP* 120 MG PO SCH (20:31)
[2017-02-03] MEDS: Insulin GLARGINE(*) 1 UNITS UNIT SUBCUT SCH (21:16)
[2017-02-04 06:47] LABS: Calcium 8.9 mg/dL (8.6-10.3); EGFR African American 137.8 (>60); EGFR Non-African American 107.1 (>60); Potassium 3.9 mmol/L (3.5-5.0)
[2017-02-04] MEDS: ceFUROXime TAB(*) 250 MG PO SCH (08:47)
[2017-02-04] MEDS: Isosorbide Mononitrate ER TAB* 30 MG PO SCH (08:47)
[2017-02-04] MEDS: Insulin LISPRO* 1 UNITS UNIT SUBCUT SCH ×2 (08:48→12:16)
[2017-02-04] MEDS: Dronedarone TAB* 400 MG PO SCH (08:48)
[2017-02-04] MEDS: Diltiazem CD CAP* 240 MG PO SCH (08:48)
[2017-02-04] MEDS: Docusate CAP* 100 MG PO SCH (08:48)
[2017-02-04] MEDS: Omeprazole CAP* 20 MG PO SCH (08:48)
[2017-02-04] MEDS: Metoprolol Succinate XL TAB* 50 MG PO SCH (08:48)
[2017-02-04] MEDS: Ferrous Sulfate TAB* 325 MG PO SCH (08:48)
[2017-02-04] MEDS: Citalopram TAB* 20 MG PO SCH (08:48)
[2017-02-04] MEDS: Aspirin Low Dose CHEW TAB* 81 MG PO SCH (08:48)
--- NOTE | 2017-02-04 10:25 | PN ---
Subjective Date of Service: 02/04/17 Interval History: Ms. Moreira states that she is feeling quite well today and she is adamant about going home. She denies chest pain, SOB, nausea, or abdominal pain. Objective Active Medications: Acetaminophen (Tylenol Tab*) 650 mg PO Q6H PRN Adenosine (Adenocard*) 12 mg IV PUSH ONCE PRN Albuterol (Ventolin 2.5 Mg/3 Ml Neb.Zakiya*) 2.5 mg INH Q2H PRN Aspirin (Aspirin Low Dose Tab*) 81 mg PO DAILY [facility] Cefuroxime Axetil (Ceftin Tab(*)) 500 mg PO BID CLIF Citalopram Hydrobromide (Celexa Tab*) 20 mg PO DAILY CLIF Diltiazem HCl (Cardizem Cd Cap*) 120 mg PO BEDTIME CLIF Diltiazem HCl (Cardizem Cd Cap*) 240 mg PO DAILY CLIF Docusate Sodium (Colace Cap*) 200 mg PO BID CLIF Dronedarone (Multaq Tab*) 400 mg PO BID [facility] Ferrous Sulfate (Ferrous Sulfate Tab*) 325 mg PO DAILY [facility] Insulin Glargine (Lantus(*)) 30 units SUBCUT BEDTIME CLIF Insulin Human Lispro (Humalog*) 0 units SUBCUT ACHS [facility] Isosorbide Mononitrate (Imdur Er Tab*) 30 mg PO DAILY [facility] Metoprolol Succinate (Toprol Xl Tab*) 50 mg PO BID [facility] Metoprolol Tartrate (Lopressor Iv*) 5 mg IV Q6H PRN Montelukast Sodium (Singulair Tab*) 10 mg PO BEDTIME CLIF Morphine Sulfate (Morphine Inj (Syringe)*) 2 mg IV Q4H PRN Omeprazole (Prilosec Cap*) 20 mg PO BID CLIF Ondansetron HCl (Zofran Inj*) 4 mg IV Q6H PRN Potassium Chloride (Klor-Con Liquid*) 40 meq PO ONCE ONE Potassium Chloride (Klor Con Er Tab*) 10 meq PO BID [facility] Vital Signs 02/03/17 02/03/17 02/03/17 12:15 15:23 19:36 Temperature 98.8 F 98.8 F 98.8 F Pulse Rate 71 71 84 Respiratory 16 16 16 Rate Blood Pressure 107/54 110/51 123/67 (mmHg) O2 Sat by Pulse 91 95 95 Oximetry 02/03/17 02/03/17 02/03/17 19:43 19:48 23:33 Temperature 98.0 F Pulse Rate 81 74 Respiratory 16 18 16 Rate Blood Pressure 97/36 (mmHg) O2 Sat by Pulse 92 89 Oximetry 02/04/17 02/04/17 02/04/17 00:00 03:02 04:05 Temperature 97.9 F Pulse Rate 70 70 Respiratory 16 16 Rate Blood Pressure 106/49 106/49 (mmHg) O2 Sat by Pulse 95 89 90 Oximetry 02/04/17 02/04/17 02/04/17 07:19 07:35 07:44 Temperature 98.0 F Pulse Rate 73 76 Respiratory 16 14 18 Rate Blood Pressure 115/55 (mmHg) O2 Sat by Pulse 94 90 Oximetry Oxygen Devices in Use Now: None Appearance: Female sitting up in bed in NAD Eyes: No Scleral Icterus Ears/Nose/Mouth/Throat: Mucous Membranes Moist Neck: NL Appearance and Movements; NL JVP Respiratory: Symmetrical Chest Expansion and Respiratory Effort, Clear to Auscultation Cardiovascular: NL Sounds; No Murmurs; No JVD, No Edema Abdominal: NL Sounds; No Tenderness; No Distention Lymphatic: No Cervical Adenopathy Extremities: No Edema Skin: No Rash or Ulcers Neurological: Alert and Oriented x 3, NL Muscle Strength and Tone Nutrition: Taking PO's Result Diagrams: 02/03/17 05:45 02/04/17 05:55 Additional Lab and Data: Lab Results 01/29/17 01/29/17 Range/Units 22:58 22:58 WBC 12.3 H (3.5-10.8) 10^3/ul RBC 2.10 L (4.0-5.4) 10^6/ul Hgb 5.9 L* (12.0-16.0) g/dl Hct 19 L (35-47) % MCV 91 (80-97) fL MCH 28 (27-31) pg MCHC 31 (31-36) g/dl RDW 20 H (10.5-15) % Plt Count 185 (150-450) 10^3/ul MPV 9 (7.4-10.4) um3 Neut % (Auto) 61.0 (38-83) % Lymph % (Auto) 28.7 (25-47) % [place] % (Auto) 9.0 (1-9) % Eos % (Auto) 0.6 (0-6) % Baso % (Auto) 0.7 (0-2) % Absolute Neuts (auto) 7.5 (1.5-7.7) 10^3/ul Absolute Lymphs (auto) 3.5 (1.0-4.8) 10^3/ul Absolute Monos (auto) 1.1 H (0-0.8) 10^3/ul Absolute Eos (auto) 0.1 (0-0.6) 10^3/ul Absolute Basos (auto) 0.1 (0-0.2) 10^3/ul Absolute Nucleated RBC 0.23 10^3/ul Nucleated RBC % 1.9 INR (Anticoag Therapy) 1.19 H (0.89-1.11) Microbiology and Other Data: Microbiology 01/30/17 00:20 Nasal Screen MRSA (PCR)(RAMILA) - Final Nasal Mrsa Negative 01/29/17 23:45 Stool Occult Blood (RAMILA) - Final Stool Assess/Plan/Problems-Billing Assessment: Ms. Moreira is a 61 yo female with a PMH of iron deficiency anemia with workup in October 2016 showing gastric erosions only, recent cardiac cath showing severe CAD with collaterals, and asthma who was admitted on 01/30/17 with chest pain, new worsening anemia (Hgb 5.9), and elevated troponin (max 44). - Patient Problems (1) Anemia Comment: - Stable. Iron deficiency. - Completed 3 days of IV iron sucrose. - EGD done 01/31/17 showed improvement in gastric erosions. Pt had EGD, colonoscopy and capsule study down outpatient in December and January 2017 which showed gastric erosions, but no clear bleeding source. Of note, however, the original colonoscopy was a very poor study. GUIAC has been negative. Continue PPI. - Discussed with Dr. Armstrong. Plan to review preliminary results of bone marrow biopsy([facility] consulted), if no alternate source of anemia found will proceed with colonoscopy. Patient offered a colonoscopy for Tuesday. Patient refuses and wishes to follow up outpatient. (2) ACS (acute coronary syndrome) Comment: - Appeciate cardiology consultation, patient is at this point medically optimized though she will need close follow up with Dr. Carrizales outpatient. HR well controlled thus far now on metoprolol, cardizem, and multaq. Continue to monitor electrolytes outpatient, on potassium supplementation. - On arrival, trop peaked at 44 with severe anemia and Hgb 5.9. Then, had chest pain, ST depressions, and re-elevation in troponin after EGD when she was briefly tachycardic to the 130s. Also had another episode of SVT with HR 200s. - Echo 01/30/17 shows nl LV function, no wall motion abnormality, mild to moderate and MR. Cardiac cath from October 2016 showed severe CAD to RC with collaterals, 20-30% distal left main, 30% proximal left circ. - Cardiac intervention continues to be contraindicated due to presumed bleeding source, aggresively looking to determine cause of anemia. - Continue isosorbide and aspirin. Continue statin. (3) UTI (urinary tract infection) Comment: - UA positive, culture with ecoli. - Complete course of cefuroxime. (4) Diabetes Comment: - BG 150-300. - Increase lantus to 35 units q PM. Continue increased Lispro SSI coverage with meals. Hold metformin and victoza. (5) DVT prophylaxis Comment: - SCDs. (6) Full code status Status and Disposition: Inpatient with LOS > 2 days. Discharge to home.
[2017-02-04] MEDS ORDERED: Potassium Chloride LIQUID* 20 MEQ PACKET PO ONE (10:30)
[2017-02-04 10:46] LABS: Troponin I 2.05 ng/mL (<0.04)
[2017-02-04 12:03] VITALS: BP 113/55
[2017-02-04] MEDS ORDERED: Insulin GLARGINE(*) 1 UNITS UNIT SUBCUT SCH (21:00)
[2017-02-04] MEDS ORDERED: Potassium Chlor TAB* 10 MEQ TAB.ER PO SCH (21:00)
--- NOTE | 2017-02-05 18:23 | DS ---
CC: Dr. Julianne Pinto* [facility] MEDICINE DISCHARGE SUMMARY: DATE OF ADMISSION: 01/29/17 DATE OF DISCHARGE AGAINST MEDICAL ADVICE: 02/04/17 PRIMARY CARE PHYSICIAN: Dr. Julianne Pinto. ATTENDING PHYSICIAN: Dr. Bekah Mckeon* (dictation provided by Elo Ramírez NP) . PRINCIPAL DIAGNOSES: 1. Myocardial infarction (suspected demand ischemia). 2. Iron-deficiency anemia. 3. Supraventricular tachycardia. SECONDARY DIAGNOSES: 1. Type 2 diabetes, insulin dependent. 2. Coronary artery disease, with cardiac catheterization 10/2016 revealing severe subtotal RCA occlusion with collaterals at 20% to 30% distal left main lesion and a 30% proximal circumflex lesion. 3. EF 55%. 4. Asthma. 5. Hypertension. 6. Hyperlipidemia. 7. Chronic left rotator cuff tear. 8. GERD. 9. Depression/anxiety. MEDICATIONS AT THE TIME OF DISCHARGE: 1. Potassium chloride 10 mEq p.o. b.i.d. 2. Cardizem CD 120 mg p.o. b.i.d. 3. Metoprolol tartrate 50 mg p.o. b.i.d. 4. Multaq 400 mg p.o. b.i.d. 5. Amitriptyline 25 mg p.o. at bedtime p.r.n. 6. Advair 115/21, two puffs inhaled b.i.d. 7. Flovent 2 puffs b.i.d. 8. Isosorbide mononitrate ER 30 mg p.o. daily. 9. Lantus 40 units subcutaneously at bedtime. 10. Liraglutide 1.8 mL subcutaneously daily. 11. Mometasone 220 mcg one puff inhaled daily. 12. Multivitamin with mineral 1 tablet p.o. daily. 13. Nitroglycerin p.r.n. 14. Probiotic product 1 cap p.o. daily. 15. Rosuvastatin 10 mg p.o. at bedtime. 16. Tizanidine 8 mg p.o. q.i.d. 17. Metformin 1500 mg p.o. at bedtime. 18. Lexapro 10 mg p.o. daily. 19. Ferrous sulfate 325 mg p.o. daily. 20. Montelukast 10 mg p.o. at bedtime. HOSPITAL COURSE: Ms. Moreira is a 61-year-old female with a past medical history of diabetes, iron-deficiency anemia, hypertension, hyperlipidemia, and coronary artery disease, who presented to the hospital on 01/29/17 with concern for malaise and chest pain. Please see dictated H and P from Tapan Collazo for complete details. In brief, the patient had originally presented with iron- deficiency anemia earlier in the year to her primary care's office. She followed with Dr. Gross from [facility] who performed an upper EGD and a colonoscopy. The EGD found gastric erosions. Colonoscopy was a very poor prep, but did not find any source of bleeding. She underwent capsule endoscopy thereafter, which showed again the gastric erosions. She thereafter went on for cardiac catheterization in October 2016, which showed "severe coronary artery disease with subtotally occluded right coronary artery, which was small vessel ostial to the proximal segment with left to right collaterals, mild 20% to 30% noncritical disease in the distal main and mild 30 % of the proximal left circ." The patient presented on 01/29/17 with malaise and chest pain and was found to have hemoglobin of 5.9, her last hemoglobin from October 18, 2016, was 11.6. This anemia was iron deficiency based. Her percent saturation was 13. Initial troponin on arrival was 3.97. EKG showed normal sinus rhythm with a heart rate of 83, and no evidence of ischemia. Ms. Moreira was admitted to the hospital. She was transfused with 2 units of packed red blood cells and a consult was placed to [facility]. Cardiology was consulted, but unfortunately, patient was not a candidate for cardiac intervention due to her severe anemia. Ms. Moreira's troponin peaked at 44.32 on 01/30/17. She was seen in consultation by Dr. Gross. A chest, abdomen, and pelvis CTA was performed, which showed no evidence for pulmonary embolism or aortic dissection. They did show interstitial infiltrates and ground-glass opacities and bilateral lower lobe infiltrates consistent with pulmonary edema and/or pneumonia. The liver has a cirrhotic morphology and there were findings suggestive of pulmonary hypertension. Cholelithiasis and mild thickening about the wall of the urinary bladder suggestive of cystitis, recommended clinical correlation. Transthoracic echocardiogram showed that the ejection fraction was 60% to 65%, with global left ventricular wall motion contractility within normal limits. She was seen in consultation by Dr. Hoover who again confirmed that the patient would not be a candidate for cardiac catheterization and recommended that we make efforts to correct and determine the cause of anemia. Again, the patient was consulted on by Dr. Gross who performed an upper endoscopy on 01/31/17; per the report from this, patient's gastric erosions had improved. Dr. Gross recommended that we look for alternative sources of anemia. Dr. Cedeno from Hematology consulted on 02/01/17, and recommended that a bone marrow biopsy to be performed, which was done on 02/02/17. On 02/04/17, bone marrow biopsy preliminary results returned and showed no evidence of bone marrow dysfunction. The plan is for Dr. Cedeno to review the slides himself and to meet with the patient as outpatient for the final results of the sent out tests. As there is no alternative diagnosis for anemia discovered with the bone marrow biopsy or with Hematology consultation, plans were made to have Ms. Moreira go for a colonoscopy. I spoke with Dr. Pace and he was willing to perform the procedure over the weekend after prep. We recommend that the patient stay in the hospital for a prep for colonoscopy and through the colonoscopy as she has had significant issues with heart rate control and electrolyte management. After the EGD performed on 01/31/17, the patient returned to the floor and had a heart rate in the 130s, she had chest pain, she was clammy, and her troponin peaked to 7, and she had ST changes. The following day she had another episode of SVT, with heart rate in the 200s. Because of this we have increased the patient to home metoprolol dose, returned her to her Cardizem dose, and also started Multaq, in addition the patient's potassium has been repleted. With this her heart is much better controlled, running in approximately 70s to 80s. Her blood pressure is running 90s to 100s, and therefore we did back down on the Cardizem dose slightly. Because of the fragility of Ms. Moreira's situation with her recent DE and her concern for significant electrolyte abnormalities and need for monitoring during prep for colonoscopy and in the periprocedural period, we did recommend that she stay in the hospital overnight. Ms. Moreira is clear that she would like to be discharged home to follow up as outpatient for the colonoscopy. I reviewed this with her that this will be against our recommendations and that she has decided to sign out against medical advice. I did provide Ms. Moreira with all of the medications as we have been giving her here in the hospital with prescriptions for home, and she is to follow up with Dr. Gross's office regarding arranging colonoscopy and make sure to also obviously continue to follow up with Dr. Carrizales given her elevated troponin and concern for the atherosclerosis and coronary artery disease and ACS. DISPOSITION: To home. DIET: Consistent carbohydrate, low fat, low salt. ACTIVITY: The patient is instructed to have light level activity with no aerobic activity and no heavy lifting. FOLLOWUP PLANS: 1. Follow up with Dr. Gross's office regarding scheduling the colonoscopy. 2. Follow up with Dr. Carrizales's regarding ongoing management of coronary artery disease. 3. Follow up with Dr. Pinto in the next 1 to 2 weeks regarding this acute significant hospitalization. TIME SPENT: Approximately 90 minutes were spent on the discharge of this patient, more than half that time was spent with her at the bedside, reviewing the events leading up to this hospitalization, performing the physical examination, and reviewing the plan of care. ELO RAMÍREZ, NABIL [id number]/[facility] #: [id number] PAT
--- NOTE | 2017-02-06 14:30 | HP ---
HISTORY AND PHYSICAL: DATE OF ADMISSION: 01/29/2017. HISTORY OF PRESENT ILLNESS: This is a 61-year-old female, who comes in today to discuss anemia. She does feel fatigued, does feel short of breath. She has asthma, but she is not quite sure if her symptoms are related to asthma or her anemia. She denies any blood in the stool, no GERD, no history of anemia in the past. She has been taking nonsteroidals every day for the past year; however, recently stopped this. She is on iron. She has never had a colonoscopy. PAST MEDICAL HISTORY: Diabetes, cardiomyopathy, hypertension. PAST SURGICAL HISTORY: Includes , abdominoplasty, rotator cuff surgery. CURRENT MEDICATIONS: Include: 1. Aspirin. 2. Ceftin. 3. Multaq. 4. Metoprolol. 5. Klor-Con. 6. Cardizem. 7. Ferrous sulfate. 8. Imdur. 9. Asmanex. 10. Glucophage. 11. Tylenol. 12. Nitroglycerin. 13. Diltiazem. 14. Metoprolol. 15. Advair. 16. Amitriptyline. 17. Ventolin. 18. Cartia. 19. Metformin. 20. Victoza. 21. Lantus. 22. Tizanidine. 23. Omeprazole. 24. Asmanex. 25. Montelukast. 26. Prempro. FAMILY HISTORY: Significant for dementia, macular degeneration. SOCIAL HABITS: She denies any tobacco. Rare alcohol. coffee. REVIEW OF SYSTEMS: Twelve systems were reviewed, other than that mentioned in the HPI were unremarkable. PHYSICAL EXAMINATION GENERAL: A well-appearing female, in no apparent distress. Alert, oriented, pleasant, and fluent. VITAL SIGNS: Stable. HEENT: Mucous membranes are moist without lesions, ulcers, or exudate. Head is normocephalic and atraumatic. NECK: Supple. Trachea is midline. LUNGS: Clear to auscultation. HEART: Regular rate and rhythm. ABDOMEN: Positive bowel sounds. Soft, nontender, nondistended. No hepatosplenomegaly, masses, rebound, or guarding. DIAGNOSTIC STUDIES/LAB DATA: Hemoglobin 8.4. ASSESSMENT AND PLAN: This is a 61-year-old female with iron deficiency anemia. She needs to have an EGD and colonoscopy. If they are unremarkable, then a small bowel series and a capsule endoscopy. [id number]/[facility] #: [id number] [facility] CENTEREduardo
[2017-02-10 16:53] LABS: BM Result Summary Normal
== END 2017-02-04 13:52 | disposition left against medical advice (07) | DRG 811 ==
LOC: ED 22:13 → ICU 23:36 → MEDTELE 01-31 09:55
PROVIDERS: ADMIT Hospitalist; ATTEND Hospitalist
PROC: 30233N1 Transfusion of Nonautologous Red Blood Cells into Peripheral Vein, Percutaneous Approach (ICD-10-PCS; principal; 2017-01-29)
PROC: 5A09357 Assistance with Respiratory Ventilation, Less than 24 Consecutive Hours, Continuous Positive Airway Pressure (ICD-10-PCS; 2017-01-30)
PROC: 0DJ08ZZ Inspection of Upper Intestinal Tract, Via Natural or Artificial Opening Endoscopic (ICD-10-PCS; 2017-01-31)
PROC: 07DR3ZX Extraction of Iliac Bone Marrow, Percutaneous Approach, Diagnostic (ICD-10-PCS; 2017-02-02)
DX: D50.9 Iron deficiency anemia, unspecified (principal); I21.4 Non-ST elevation (NSTEMI) myocardial infarction; I42.9 Cardiomyopathy, unspecified; D69.6 Thrombocytopenia, unspecified; I27.2 Other secondary pulmonary hypertension; I47.1 Supraventricular tachycardia; N30.01 Acute cystitis with hematuria; J45.909 Unspecified asthma, uncomplicated; E11.9 Type 2 diabetes mellitus without complications; I10 Essential (primary) hypertension; I25.10 Atherosclerotic heart disease of native coronary artery without angina pectoris; E78.5 Hyperlipidemia, unspecified; K21.9 Gastro-esophageal reflux disease without esophagitis; F41.9 Anxiety disorder, unspecified; F32.9 Major depressive disorder, single episode, unspecified; E66.3 Overweight; E78.00 Pure hypercholesterolemia, unspecified; R40.2412 Glasgow coma scale score 13-15, at arrival to emergency department; E87.6 Hypokalemia; R35.0 Frequency of micturition; I08.0 Rheumatic disorders of both mitral and aortic valves; B96.20 Unspecified Escherichia coli [E. coli] as the cause of diseases classified elsewhere; T80.89XA Other complications following infusion, transfusion and therapeutic injection, initial encounter; R50.9 Fever, unspecified; M75.102 Unspecified rotator cuff tear or rupture of left shoulder, not specified as traumatic; K80.20 Calculus of gallbladder without cholecystitis without obstruction; K74.60 Unspecified cirrhosis of liver; Z82.0 Family history of epilepsy and other diseases of the nervous system; Z83.518 Family history of other specified eye disorder; Z82.49 Family history of ischemic heart disease and other diseases of the circulatory system; Z83.3 Family history of diabetes mellitus; Z82.5 Family history of asthma and other chronic lower respiratory diseases; Z68.27 Body mass index [BMI] 27.0-27.9, adult; Z82.61 Family history of arthritis; Z80.8 Family history of malignant neoplasm of other organs or systems; Z82.3 Family history of stroke; Z79.4 Long term (current) use of insulin
CPT/HCPCS: 36415; 38221; 71020; 71275; 74174; 80048; 80053; 80061; 81003; 81015; 81479; 82247; 82248; 82270; 82550; 82553; 82607; 82728; 82746; 82947; 83010; 83036; 83070; 83540; 83550; 83605; 83615; 83735; 84450; 84460; 84484; 85025; 85045; 85060; 85097; 85610; 86078; 86140; 86850; 86900; 86901; 86922; 87077; 87086; 87186; 87641; 88184; 88187; 88188; 88237; 88271; 88305; 88311; 88313; 93005; 93306; 94660; 94760; 99284; A9270-GY; J0153; J0696; J1756; J1940; J2250; J2270; J2405; J3010; P9040; Q9967

== ENCOUNTER 2017-10-29 03:53 | Emergency (ER) | payer OTHER ==
--- OUTSIDE RECORDS SUMMARY | 2017-10-29 04:04 | XMS REPORT ---
:1955 External Reference #:[id number] Author Organization [facility] Address [address] [address] Phone [phone] Care Team Providers Name Role Phone Julianne Pinto MD Primary Care Physician Unavailable Payers Type Date Identification Numbers Payment Provider Subscriber Commercial Effective: Policy Number: [id number] [employer] José Moreira 2009 Group Number: [id number] [id number] PayID: [id number] [place] [address] Problems Date Description Provider Status Onset: 12/21/2012 Chest pain Surendra Carrizales M.D. Active Onset: 12/21/2012 Benign essential hypertension Surendra Carrizales M.D. Active Onset: 12/21/2012 Type 2 diabetes mellitus Surendra Carrizales M.D. Active Onset: 12/21/2012 Precordial pain Surendra Carrizales M.D. Active Onset: 04/28/2015 Dyspnea Shruthi Smalls MD Active Onset: 04/28/2015 Sleep disorder Shruthi Smalls MD Active Onset: 04/28/2015 Mild intermittent asthma, Shruthi Smalls MD Active uncomplicated Onset: 06/02/2015 Obesity Shruthi Smalls MD Active Family History Date Family Member(s) Problem(s) Comments : (age 82 Father due to Alzheimer's Years) Disease Father Skin Cancer Mother Asthma Mother Arthritis Mother Osteoporosis Mother Thyroid Disease Mother Gout Mother Colon Polyps Siblings 3 Siblings Sister w/back issues,pain issues-brothers healthy First Sister Thyroid Disease Paternal Grandfather Alcoholism Paternal Grandfather Cancer Paternal Grandmother Diabetes, Insulin Dependent Paternal Grandmother Coronary Artery Disease (CAD) Maternal Grandmother Diabetes, Insulin Dependent Social History Type Date Description Comments Marital Status Lives With Occupation Retired ETOH Use Denies alcohol use Smoking Patient has never smoked second hand from in past has since quit Recreational Drug Use Never Used Drugs Daily Caffeine Consumes on average 2 sodas per day Exercise Type/Frequency Exercises regularly General Hx Text Allergies, Adverse Reactions, Alerts Date Description Reaction Status Severity Comments 11/02/2012 Erythromycin active nausea 11/02/2012 Lipitor active elevated LFTs Medications Medication Date Status Form Strength Qnty SIG Indications Ordering Provider Aldactone 01/11/ Active Tablets 25mg 30tabs 1 by mouth Surendra 2016 every day Monique Carrizales M.D. Diltiazem CD 12/17/ Active Caps ER 120mg 90caps 1 caps by Surendra 2017 24HR mouth in F. am and 1 juan jose Carrizales by Ivy mouth in pm Isosorbide 11/29/ Active Tablets ER 30mg 90tabs 1 by mouth I25.10 Surendra Mononitrate ER 2016 24HR every day Monique Carrizales M.D. Advair HFA 04/28/ Active Aerosol 115-21mcg/ 3units 2 puff R06.02 Shruthi 2014 Act twice a Serina, day (not MD currently using) Crestor 05/07/ Active Tablets 10mg 30tabs 1 po qd Surendra 2012 Monique Carrizales M.D. Amitriptyline 11/02/ Active Tablets 25mg 30tabs 1 po qhs Other HCL 2012 prn Ordering Provider Multivitamins 11/02/ Active Tablets 90tabs 1 po qd Other 2012 Ordering Provider Montelukast 11/02/ Active Tablets 10mg 30tabs 1 po qd Other Sodium 2012 Ordering Provider Lantus Solostar / Active Solution 100Unit/ML 15unit inject 48 Unknown 0000 Pen-Inject s units under the skin every night Flovent HFA / Active Aerosol 220mcg/Act inhale two Unknown 0000 puffs by mouth twice a day (not currently using) Tizanidine HCL / Active Capsules 4mg 2 po qhs Unknown 0000 Ventolin HFA / Active Aerosol 108(90Base 2 puffs by Unknown 0000 ) mcg/Act mouth four times a day as needed Escitalopram / Active Tablets 10mg 1 by mouth Unknown Oxalate 0000 every day Metformin HCL / Active Tablets ER 750mg take two Unknown ER 0000 24HR tablets by mouth every day Probiotic / Active Capsules 1 by mouth Unknown 0000 every day Victoza / Active Solution 18mg/3ML inject 1.8 Unknown 0000 Pen-Inject mg under the skin daily Aspir-81 / Active Tablets DR 81mg 1 by mouth Unknown 0000 every day Iron (Ferrous / Active Tablets 256(28Fe) once daily Unknown Gluconate) 0000 mg Toprol XL / Active Tablets ER 50mg 1 tab by Unknown 0000 24HR mouth twice daily Omeprazole / Active Capsules 20mg 1 by mouth Unknown 0000 DR every day Amoxicillin / Active Tablets 500mg 1 po qd Unknown 0000 Glipizide ER / Active Tablets ER 2.5mg 2 by mouth Unknown 0000 24HR every day Nitro-Dur 10/08/ Hx Patches 0.2mg/HR 30unit 1 patch I25.10 Surendra 2016 - 24HR s every day F. 11/29/ on in the , 2016 in the M.D. morning, off in the at night Toprol XL 06/15/ Hx Tablets ER 25mg 270tab 2 tablets Surendra 2015 - 24HR s in the F. 02/15/ morning Mauser, 2016 and 1 M.D. tablet in the evening (increased 07/08/16) Diltiazem HCL 04/27/ Hx Tablets 120mg 90tabs 2 by mouth Surendra 2014 - in am and F. in pm Sofie 2016 M.D. Dilt-CD 02/18/ Hx Caps ER 120mg 180cap 2 by mouth Surendra 2014 - 24HR s once a . 04/06/ day Sofie, 2015 M.D. Dilt-CD 12/21/ Hx Caps ER 120mg 60caps 2 by mouth Surendra 2012 - 24HR every day F. 02/18/ Sofie 2014 M.D. Zanaflex 11/02/ Hx Tablets 4mg 1 q4-6prn Other 2013 - spasm Ordering 11/07/ Provider 2016 Metoprolol 11/02/ Hx Tablets ER 50mg 30tabs 1 po bid Other Succinate ER 2013 - 24HR Ordering 06/14/ Provider 2016 Lisinopril 11/02/ Hx Tablets 10mg 90tabs 1 po qd Surendra 2012 - hold as of F. .16.13 Sofie 2013 Ivy Simvastatin 11/02/ Hx Tablets 10mg 90tabs 1 po qhs Other 2012 - Ordering 05/07/ Provider 2012 Metformin HCL 11/02/ Hx Tablets ER 1000mg 90tabs take 1 Other ER 2013 - 24HR tablet Ordering 06/14/ with Provider 2016 dinner Prempro / Hx Tablets 0.3 1 by mouth Unknown 0000 - every day 12/16/ skip twice 2016 a week, tapering Toprol XL / Hx Tablets ER 50mg 1 by mouth Unknown 0000 - 24HR twice 06/15/ daily 2015 Asmanex / Hx Aerosol 220mcg/Inh 1 puff Unknown Twisthaler 30 0000 - daily Metered Doses 2016 Azelastine HCL / Hx Solution 0.1% spray 1-2 Unknown (Nasal) 0000 - spray in 09/06/ each 2018 nostril two times a day as needed Multaq / Hx Tablets 400mg 1 by mouth Unknown 0000 - twice a 2017 Potassium 00/ Hx Tablets ER 10Meq 1 by mouth Unknown Chloride ER 0000 - daily 2017 Vital Signs Date Vital Result Comment 10/05/2017 Height 67 inches 5'7" Weight 178.25 lb with shoes Heart Rate 78 /min BP Systolic Sitting 144 mmHg LA, reg cuff BP Diastolic Sitting 72 mmHg LA, reg cuff BMI (Body Mass Index) 27.9 kg/m2 Ejection Fraction 65%-70% echo 02/16/17 09/07/2017 Height 67 inches 5'7" Weight 178.75 lb Heart Rate 94 /min BP Systolic Sitting 140 mmHg LA, reg BP Diastolic Sitting 82 mmHg LA, reg BMI (Body Mass Index) 28.0 kg/m2 Ejection Fraction 65%-70% 02/16/17 03/29/2017 Height 67 inches 5'7" Weight 174.75 lb with shoes Heart Rate 80 /min BP Systolic Sitting 118 mmHg LA reg cuff BP Diastolic Sitting 68 mmHg LA reg cuff BMI (Body Mass Index) 27.4 kg/m2 Ejection Fraction 65%-70% echo 02/16/17 02/15/2017 Height 67 inches 5'7" Weight 173.00 lb Heart Rate 78 /min BP Systolic Sitting 144 mmHg Lue reg cuff BP Diastolic Sitting 78 mmHg Lue reg cuff BP Systolic Standing 136 mmHg Lue reg cuff BP Diastolic Standing 76 mmHg Lue reg cuff BMI (Body Mass Index) 27.1 kg/m2 01/10/2017 Height 67 inches 5'7" Heart Rate 64 /min Apical BP Systolic 158 mmHg Ra< reg BP Diastolic 64 mmHg Ra< reg BP Systolic Sitting 154 mmHg LA, reg BP Diastolic Sitting 64 mmHg LA, reg BP Systolic Recheck 160 mmHg Ra (after sit addtl 10 min) BP Diastolic Recheck 64 mmHg Ra (after sit addtl 10 min) 12/17/2016 Height 67 inches 5'7" Weight 180.00 lb with shoes Heart Rate 86 /min BP Systolic Sitting 152 mmHg LA reg cuff BP Diastolic Sitting 68 mmHg LA reg cuff BMI (Body Mass Index) 28.2 kg/m2 Ejection Fraction >70% echo 08/11/16 11/29/2016 Height 67 inches 5'7" Weight 181.00 lb w/shoes Heart Rate 86 /min BP Systolic Sitting 164 mmHg LA reg cuff BP Diastolic Sitting 70 mmHg LA reg cuff BMI (Body Mass Index) 28.3 kg/m2 Ejection Fraction 55% Cath 10/27/16 10/29/2016 Height 67 inches 5'7" Weight 187.00 lb Heart Rate 94 /min BP Systolic Sitting 192 mmHg Ra, reg BP Diastolic Sitting 102 mmHg Ra, reg BMI (Body Mass Index) 29.3 kg/m2 10/12/2016 Height 67 inches 5'7" Weight 181.75 lb w/shoes Heart Rate 92 /min BP Systolic Sitting 184 mmHg LA lg cuff BP Diastolic Sitting 80 mmHg LA lg cuff BMI (Body Mass Index) 28.5 kg/m2 Ejection Fraction > 70% Echo 08/11/16 07/20/2016 Heart Rate 88 /min BP Systolic Sitting 160 mmHg Ra, regular BP Diastolic Sitting 80 mmHg Ra, regular 06/15/2016 Height 67 inches 5'7" Weight 183.50 lb with shoes Heart Rate 78 /min BP Systolic Sitting 110 mmHg LA reg cuff BP Diastolic Sitting 66 mmHg LA reg cuff BMI (Body Mass Index) 28.7 kg/m2 Ejection Fraction >70% echo 05/05/15 06/02/2015 Heart Rate 94 /min BP Systolic Sitting 132 mmHg BP Diastolic Sitting 76 mmHg Respiratory Rate 18 /min O2 % BldC Oximetry 98 % 04/28/2015 Height 67 inches 5'7" Weight 188.25 lb Heart Rate 66 /min BP Systolic Sitting 134 mmHg BP Diastolic Sitting 72 mmHg Respiratory Rate 18 /min Body Temperature 96.8 F O2 % BldC Oximetry 97 % BMI (Body Mass Index) 29.5 kg/m2 04/07/2015 Height 66.5 inches 5'6.50" Weight 185.00 lb w/shoes Heart Rate 76 /min BP Systolic Sitting 164 mmHg LA reg cuff BP Diastolic Sitting 78 mmHg LA reg cuff BP Systolic Standing 142 mmHg BP Diastolic Standing 64 mmHg BMI (Body Mass Index) 29.4 kg/m2 Ejection Fraction 55-60 echo 05/28/13 05/06/2014 Height 66.5 inches 5'6.50" Weight 184.75 lb w/shoes Heart Rate 78 /min BP Systolic Sitting 142 mmHg BP Diastolic Sitting 74 mmHg Respiratory Rate 16 /min BMI (Body Mass Index) 29.4 kg/m2 05/07/2013 Height 66.5 inches 5'6.50" Weight 191.00 lb Heart Rate 77 /min BP Systolic 170 mmHg BP Diastolic 82 mmHg Respiratory Rate 14 /min BMI (Body Mass Index) 30.4 kg/m2 12/21/2012 Height 66.5 inches 5'6.50" Weight 189.00 lb Heart Rate 80 /min BP Systolic 112 mmHg BP Diastolic 62 mmHg BMI (Body Mass Index) 30.0 kg/m2 Results Test Date Test Result H/L Range Note Basic Metabolic Panel 09/16/2017 Sodium 135 mmol/L 133-145 Potassium 4.3 mmol/L 3.5-5.0 Chloride 100 mmol/L Low 101-111 Co2 Carbon Dioxide 27 mmol/L 22-32 Anion Gap 8 mmol/L 2-11 Glucose 133 mg/dL High 70-100 Blood Urea Nitrogen 12 mg/dL 6-24 Creatinine 0.63 mg/dL 0.51-0.95 BUN/Creatinine Ratio 19.0 8-20 Calcium 10.3 mg/dL 8.6-10.3 Egfr Non- 95.1 >60 Egfr 122.4 >60 1 Laboratory test finding 09/16/2017 Thyroxine 11.12 g/mL 6.09-12.23 TSH (Thyroid Stim Horm) 0.95 mcIU/mL 0.34-5.60 Thyroperoxidase AB 0.87 IU/mL <9 Hemoglobin/Hematocrit 09/05/2017 Hemoglobin 11.4 g/dL Low 12.0-16.0 Hematocrit 34 % Low 35-47 Basic Metabolic Panel 01/24/2017 Sodium 130 mmol/L Low 133-145 Potassium 4.3 mmol/L 3.5-5.0 Chloride 97 mmol/L Low 101-111 Co2 Carbon Dioxide 24 mmol/L 22-32 Anion Gap 9 mmol/L 2-11 Glucose 299 mg/dL High 70-100 Blood Urea Nitrogen 17 mg/dL 6-24 Creatinine 0.73 mg/dL 0.51-0.95 BUN/Creatinine Ratio 23.3 High 8-20 Calcium 9.3 mg/dL 8.6-10.3 Egfr Non- 80.5 >60 Egfr 103.6 >60 2 Basic Metabolic Panel 10/29/2016 Sodium 137 mmol/L 133-145 Potassium 3.8 mmol/L 3.5-5.0 Chloride 100 mmol/L Low 101-111 Co2 Carbon Dioxide 29 mmol/L 22-32 Anion Gap 8 mmol/L 2-11 Glucose 175 mg/dL High 70-100 Blood Urea Nitrogen 8 mg/dL 6-24 Creatinine 0.64 mg/dL 0.51-0.95 BUN/Creatinine Ratio 12.5 8-20 Calcium 9.8 mg/dL 8.6-10.3 Egfr Non- 93.7 >60 Egfr 120.5 >60 3 Laboratory test finding 10/27/2016 Point of Care Glucose 170 mg/dL High 74 -106 4 Basic Metabolic Panel 10/18/2016 Sodium 138 mmol/L 133-145 Potassium 3.9 mmol/L 3.5-5.0 Chloride 101 mmol/L 101-111 Co2 Carbon Dioxide 26 mmol/L 22-32 Anion Gap 11 mmol/L 2-11 Glucose 111 mg/dL High 70-100 Blood Urea Nitrogen 8 mg/dL 6-24 Creatinine 0.66 mg/dL 0.51-0.95 BUN/Creatinine Ratio 12.1 8-20 Calcium 9.5 mg/dL 8.6-10.3 Egfr Non- 90.5 >60 Egfr 116.3 >60 5 Inr/Protime 10/18/2016 Inr 1.14 High 0.89-1.11 CBC Auto Diff 10/18/2016 White Blood Count 4.8 10^3/uL 3.5-10.8 Red Blood Count 4.20 10^6/uL 4.0-5.4 Hemoglobin 11.6 g/dL Low 12.0-16.0 Hematocrit 37 % 35-47 Mean Corpuscular Volume 87 fL 80-97 Mean Corpuscular Hemoglobin 28 pg 27-31 Mean Corpuscular HGB Conc 32 g/dL 31-36 Red Cell Distribution Width 20 % High 10.5-15 Platelet Count 106 10^3/uL Low 150-450 Mean Platelet Volume 9 um3 7.4-10.4 Abs Neutrophils 2.5 10^3/uL 1.5-7.7 Abs Lymphocytes 1.7 10^3/uL 1.0-4.8 Abs Monocytes 0.4 10^3/uL 0-0.8 Abs Eosinophils 0.1 10^3/uL 0-0.6 Abs Basophils 0 10^3/uL 0-0.2 Abs Nucleated RBC 0 10^3/uL Granulocyte % 52.4 % 38-83 Lymphocyte % 35.6 % 25-47 Monocyte % 9.3 % High 1-9 Eosinophil % 2.1 % 0-6 Basophil % 0.6 % 0-2 Nucleated Red Blood Cells % 0 Cath Panel 10/18/2016 Partial Thrombo Time 35.5 seconds 26.0-36.3 PTT Laboratory test 08/19/2016 Hemoglobin A1c 9.3 % High Less than 6.0 6 finding (Glyco HGB) Iron & Iron 08/19/2016 Iron 21 g/dL Low 50-212 Binding Capacity Unsaturated Iron Binding 547 g/dL Total Iron Binding Capacity 568 g/dL High 250-450 % Iron Saturation 4 % Low 15-55 Comp Metabolic Panel 08/19/2016 Sodium 136 mmol/L 133-145 Potassium 4.2 mmol/L 3.5-5.0 Chloride 103 mmol/L 101-111 Co2 Carbon Dioxide 25 mmol/L 22-32 Anion Gap 8 mmol/L 2-11 Glucose 135 mg/dL High 70-100 Blood Urea Nitrogen 11 mg/dL 6-24 Creatinine 0.70 mg/dL 0.51-0.95 BUN/Creatinine Ratio 15.7 8-20 Calcium 9.3 mg/dL 8.6-10.3 Total Protein 7.5 g/dL 6.4-8.9 Albumin 4.0 g/dL 3.2-5.2 Globulin 3.5 g/dL 2-4 Albumin/Globulin Ratio 1.1 1-3 Total Bilirubin 0.30 mg/dL 0.2-1.0 Alkaline Phosphatase 75 U/L 34-104 Alt 28 U/L 7-52 Ast 36 U/L 13-39 Egfr Non- 84.5 >60 Egfr 108.7 >60 7 Lipid Profile (Trig/Chol/HDL) 08/19/2016 Triglycerides 122 mg/dL 8 Cholesterol 125 mg/dL 9 HDL Cholesterol 36.4 mg/dL 10 LDL Cholesterol 64 mg/dL 11 CBC Auto Diff 08/19/2016 White Blood Count 5.1 10^3/uL 3.5-10.8 Red Blood Count 2.94 10^6/uL Low 4.0-5.4 Hemoglobin 8.4 g/dL Low 12.0-16.0 Hematocrit 27 % Low 35-47 Mean Corpuscular Volume 92 fL 80-97 Mean Corpuscular Hemoglobin 29 pg 27-31 Mean Corpuscular HGB Conc 31 g/dL 31-36 Red Cell Distribution Width 16 % High 10.5-15 Platelet Count 102 10^3/uL Low 150-450 Mean Platelet Volume 10 um3 7.4-10.4 Abs Neutrophils 2.8 10^3/uL 1.5-7.7 Abs Lymphocytes 1.8 10^3/uL 1.0-4.8 Abs Monocytes 0.4 10^3/uL 0-0.8 Abs Eosinophils 0.1 10^3/uL 0-0.6 Abs Basophils 0 10^3/uL 0-0.2 Abs Nucleated RBC 0.01 10^3/uL Granulocyte % 55.2 % 38-83 Lymphocyte % 34.5 % 25-47 Monocyte % 8.5 % 1-9 Eosinophil % 1.3 % 0-6 Basophil % 0.5 % 0-2 Nucleated Red Blood Cells % 0.1 Laboratory test finding 08/19/2016 Ferritin 10.3 ng/mL Low 11-307 12 Laboratory test finding 04/23/2013 Hemoglobin A1c 7.9 % High Less than 6.0 13 Comp Metabolic Panel 04/23/2013 Sodium 136 mmol/L 133-145 Potassium 4.1 mmol/L 3.5-5.0 Chloride 100 mmol/L Low 101-111 Co2 Carbon Dioxide 29.0 mmol/L 22-32 Anion Gap 7.0 mmol/L 2-11 Glucose 182 mg/dL High 70-100 Blood Urea Nitrogen 13 mg/dL 6-24 Creatinine 0.60 mg/dL 0.50-1.40 BUN/Creatinine Ratio 21.7 High 8-20 Calcium 9.6 mg/dL 8.1-9.9 Total Protein 7.1 g/dL 6.2-8.1 Albumin 3.8 g/dL 3.2-5.2 Globulin 3.3 g/dL 2-4 Albumin/Globulin Ratio 1.2 1-3 Total Bilirubin 0.5 mg/dL 0.4-1.5 Alkaline Phosphatase 59 U/L 30-110 Alt 32 U/L 14-54 Ast 30 U/L 12-42 Egfr Non- 102.0 >60 Egfr 131.1 >60 14 1 Because ethnic data is not always readily available, this report includes an eGFR for both -Americans and non- Americans. The National Kidney Disease Education Program (NKDEP) does not endorse the use of the MDRD equation for patients that are not between the ages of 18 and 70, are , have extremes of body size, muscle mass, or nutritional status, or are non- or non-. According to the National Kidney Foundation, irrespective of diagnosis, the stage of the disease is based on the level of kidney function: Stage Description GFR(mL/min/1.73 m(2)) 1 Kidney damage with normal or decreased GFR 90 2 Kidney damage with mild decrease in GFR 60-89 3 Moderate decrease in GFR 30-59 4 Severe decrease in GFR 15-29 5 Kidney failure <15 (or dialysis) 2 Because ethnic data is not always readily available, this report includes an eGFR for both -Americans and non- Americans. The National Kidney Disease Education Program (NKDEP) does not endorse the use of the MDRD equation for patients that are not between the ages of 18 and 70, are , have extremes of body size, muscle mass, or nutritional status, or are non- or non-. According to the National Kidney Foundation, irrespective of diagnosis, the stage of the disease is based on the level of kidney function: Stage Description GFR(mL/min/1.73 m(2)) 1 Kidney damage with normal or decreased GFR 90 2 Kidney damage with mild decrease in GFR 60-89 3 Moderate decrease in GFR 30-59 4 Severe decrease in GFR 15-29 5 Kidney failure <15 (or dialysis) 3 Because ethnic data is not always readily available, this report includes an eGFR for both -Americans and non- Americans. The National Kidney Disease Education Program (NKDEP) does not endorse the use of the MDRD equation for patients that are not between the ages of 18 and 70, are , have extremes of body size, muscle mass, or nutritional status, or are non- or non-. According to the National Kidney Foundation, irrespective of diagnosis, the stage of the disease is based on the level of kidney function: Stage Description GFR(mL/min/1.73 m(2)) 1 Kidney damage with normal or decreased GFR 90 2 Kidney damage with mild decrease in GFR 60-89 3 Moderate decrease in GFR 30-59 4 Severe decrease in GFR 15-29 5 Kidney failure <15 (or dialysis) 4 Gluing Machine Feeder: [id number] CHELSEA PERERA 5 Because ethnic data is not always readily available, this report includes an eGFR for both -Americans and non- Americans. The National Kidney Disease Education Program (NKDEP) does not endorse the use of the MDRD equation for patients that are not between the ages of 18 and 70, are , have extremes of body size, muscle mass, or nutritional status, or are non- or non-. According to the National Kidney Foundation, irrespective of diagnosis, the stage of the disease is based on the level of kidney function: Stage Description GFR(mL/min/1.73 m(2)) 1 Kidney damage with normal or decreased GFR 90 2 Kidney damage with mild decrease in GFR 60-89 3 Moderate decrease in GFR 30-59 4 Severe decrease in GFR 15-29 5 Kidney failure <15 (or dialysis) 6 Therapeutic target for the treatment of diabetes Mellitus patients is <7% HBA1C, and in selective patients <6.0%.Please refer to [place] [employer] Association Diabetic care guidelines for further information. 7 Because ethnic data is not always readily available, this report includes an eGFR for both -Americans and non- Americans. The National Kidney Disease Education Program (NKDEP) does not endorse the use of the MDRD equation for patients that are not between the ages of 18 and 70, are , have extremes of body size, muscle mass, or nutritional status, or are non- or non-. According to the National Kidney Foundation, irrespective of diagnosis, the stage of the disease is based on the level of kidney function: Stage Description GFR(mL/min/1.73 m(2)) 1 Kidney damage with normal or decreased GFR 90 2 Kidney damage with mild decrease in GFR 60-89 3 Moderate decrease in GFR 30-59 4 Severe decrease in GFR 15-29 5 Kidney failure <15 (or dialysis) 8 Desirable <150 Borderline high 150-199 High 200-499 Very High >500 9 Desirable <200 Borderline high 200-239 High >239 10 Low <40 Desirable: 40-60 High: >60 11 Desirable: <100 mg/dL Near Optimal: 100-129 mg/dL Borderline High: 130-159 mg/dL High: 160-189 mg/dL Very High: >189 mg/dL 12 FASTING Copy Result to: SURENDRA CARRIZALES ([id number]) [id number] Therapeutic target for the treatment of diabetes Mellitus patients is <7% HBA1C, and in selective patients <6.0%.Please refer to [employer] Diabetic care guidelines for further information. 14 Because ethnic data is not always readily available, this report includes an eGFR for both -Americans and non- Americans. The National Kidney Disease Education Program (NKDEP) does not endorse the use of the MDRD equation for patients that are not between the ages of 18 and 70, are , have extremes of body size, muscle mass, or nutritional status, or are non- or non-. According to the National Kidney Foundation, irrespective of diagnosis, the stage of the disease is based on the level of kidney function: Stage Description GFR(mL/min/1.73 m(2)) 1 Kidney damage with normal or decreased GFR 90 2 Kidney damage with mild decrease in GFR 60-89 3 Moderate decrease in GFR 30-59 4 Severe decrease in GFR 15-29 5 Kidney failure <15 (or dialysis) Procedures Date CPT Code Description Status 09/07/2017 02389 EKG Tracing & Interpretation Completed 03/29/2017 62510 EKG Tracing & Interpretation Completed 02/23/2017 77097 Holter Monitor Review (24 hr)dr piyush & interp Completed only 02/21/2017 91894 ECG Monitor/Recording W/Visual Superimposition Scanning Completed 02/16/2017 39841 ECHO Transthoracic, Real-Time 2D With Doppler And Color Completed Flow 02/15/2017 24696 EKG Tracing & Interpretation Completed 02/04/2017 12970 EKG, Interpretation Only Completed 02/03/2017 24675 EKG, Interpretation Only Completed 02/02/2017 60335 EKG, Interpretation Only Completed 02/01/2017 58149 EKG, Interpretation Only Completed 01/31/2017 18684 EKG, Interpretation Only Completed 01/30/2017 75628 ECHO Transthorasic Realtime 2D W Doppler & Color Completed Flow Hosp 01/30/2017 71882 EKG, Interpretation Only Completed 11/29/2016 11192 EKG Tracing & Interpretation Completed 10/27/2016 65693 RT & lt Cath W/Injx HRT Art&L Ventr Img S&I Completed 10/12/2016 09506 EKG Tracing & Interpretation Completed 10/08/2016 39147 Stress Test Supervsn W/Out I/R Completed 10/08/2016 71707 Treadmill Interp/Report Only Completed 08/11/2016 04278 ECHO Transthoracic, Real-Time 2D With Doppler And Color Completed Flow 06/15/2016 89775 EKG Tracing & Interpretation Completed 06/16/2015 65601 Sleep Study Unattended,HRT Rate,Oxygen Sat,Resp Completed Effort/Airflow 05/05/2015 58149 Diffusing Capacity Completed 05/05/2015 86895 Plethysmography Determination Lung Volumes & Per Completed Airway Resist 05/05/2015 54090 Pulmonary Function><Bronchodil Completed 05/05/2015 42638 ECHO Transthoracic, Real-Time 2D With Doppler And Color Completed Flow 04/07/2015 33431 EKG Tracing & Interpretation Completed 05/06/2014 84384 EKG Tracing & Interpretation Completed 05/07/2013 95495 EKG Tracing & Interpretation Completed 12/21/2012 49400 EKG Tracing & Interpretation Completed 10/24/2012 81156 Treadmill Interp/Report Only Completed 10/24/2012 89062 Stress Test Supervsn W/Out I/R Completed 10/24/2012 29694 EKG, Interpretation Only Completed Encounters Type Date Location Provider CPT E/M Dx Office Visit 09/07/2017 1:30p [facility] Surendra Carrizales, 07908 I21.4 Ivy I47.1 D50.9 E11.9 I10 I25.10 I35.0 Office Visit 03/29/2017 8:40a [facility] Surendra Carrizales M.D. 54309 I21.4 R94.31 I47.1 D50.9 E11.9 I10 I25.10 Office Visit 02/15/2017 9:00a [facility] NOÉ Tolliver [address]65[address] I47.1 I21.4 D50.9 I25.10 Office Visit 02/04/2017 2:18p [facility] Surendra Carrizales M.D. 09910 I21.4 I47.1 Office Visit 02/04/2017 11:58a [facility],samuel Ramírez, N.P. 68317 D64.9 Hospitalists I25.10 E11.9 I10 Office Visit 02/03/2017 4:29p [facility] Surendra Carrizales M.D. 84581 I21.4 I25.10 I47.1 Office Visit 02/03/2017 11:57a [facility],samuel Ramírez N.P. 51203 D64.9 Hospitalists I25.10 E11.9 I10 Office Visit 02/02/2017 11:57a [facility],pc Elo Ramírez, N.P. 04178 D64.9 Hospitalists I25.10 E11.9 I10 Office Visit 02/02/2017 9:03a [facility] Marilee Davila M.D. 48022 I25.10 Director Apparel I47.1 I35.0 Office Visit 02/01/2017 11:56a [facility],pc Elo Ramírez, N.P. 17124 D64.9 Hospitalists I25.10 E11.9 I10 Office Visit 01/31/2017 11:56a [facility],pc Severiano Hodges, 99441 D64.9 Hospitalists M.D. I25.10 E11.9 I10 Office Visit 01/30/2017 11:55a [facility],pc Severiano Hodges, 19287 D64.9 Hospitalists M.D. I25.10 E11.9 I10 Office Visit 01/30/2017 3:18p [facility] Barber Hoover, 55751 I21.4 Berkley Haynes, [facility] Office Visit 01/29/2017 11:52a [facility] [place], [address] I25.10 Assoc, Hospitalists M.DCarmen E11.9 I10 I21.4 D50.9 Office Visit 01/10/2017 9:00a [facility] [place] [address] I10 Office Visit 12/17/2016 11:30a [facility] NOÉ Tolliver 55460 I10 I35.0 I25.10 R06.02 Office Visit 11/29/2016 1:40p [facility] Surendra Carrizales, 75098 R06.02 M.D. I35.0 I10 I25.10 I34.0 Office Visit 10/29/2016 3:00p [facility] Quentin Roberts 07101 R06.02 M.D. I35.0 I10 G47.33 I25.10 Office Visit 10/12/2016 4:20p [facility] Quentin Roberts 58053 R06.02 M.DCarmen I35.0 I10 G47.33 I34.0 Office Visit 07/20/2016 2:00p [facility] Nurse Visit 68166 I10 Office Visit 06/15/2016 3:20p [facility] Surendra Carrizales, 32819 G47.33 M.DCarmen J45.20 I34.0 I35.0 R94.31 R06.02 I10 Office Visit 06/02/2015 11:30a [facility] [place] [address] F51.8 Services [employer] J45.20 E66.09 Office Visit 04/28/2015 8:45a [facility] [place] [address] R06.02 Services [facility] [employer] J45.20 F51.8 Office Visit 04/07/2015 8:40a [facility] Surendra Carrizales M.D. 61616 401.9 250.00 424.0 307.49 Office Visit 05/06/2014 2:40p [facility] Surendra Carrizales, 01155 786.50 M.DCarmen 401.1 250.00 Office Visit 05/28/2013 9:30a [facility] Surendra Carrizales M.D. 47596 401.1 250.00 Office Visit 05/07/2013 1:40p [facility] Surendra Carrizales M.D. 86231 401.1 250.00 401.9 Office Visit 12/21/2012 9:40a [facility] Surendra Carrizales 37228 786.50 M.D. 401.1 250.00 786.51 Office Visit 10/24/2012 11:12a [facility], Saranya Ayers, 18945 786.51 Hospitalists M.D. 250.90 401.9 Office Visit 10/24/2012 4:07p [facility] Surendra Carrizales, 17911 786.50 M.D. 401.1 250.00 Office Visit 10/23/2012 11:11a [facility], Jun Muñoz, 15928 786.51 Hospitalists N.P. 411.1 250.90 401.9 Plan of Care 10/05/2017 - Lynda Moise, N.P.E11.9 Type 2 diabetes mellitus without [id number] Essential (primary) hypertensionFollow up:5 mo OV Mauser with echo priorRecommendations:Continue Spirinolactone 25mg oral daily. Diltiazem 120mg CD twice daily Check BP daily. IF you start to experience dizziness, lightheadedness or suddne decrease in exercise or functional capacity lease let us know.I25.10 Athscl heart disease of [place] coronary artery w/o ang scorkF71.0 Nonrheumatic aortic (valve) stenosisNew Orders:Echocardiogram
[2017-10-29] MEDS ORDERED: NS 0.9% 1000 ML* 1,000 ML IV ONE (04:10)
[2017-10-29] MEDS ORDERED: Pantoprazole IV* 40 MG IV ONE (04:11)
[2017-10-29 04:13] LABS: ABS Basophils 0.1 10^3/ul (0-0.2); ABS Eosinophils 0.1 10^3/ul (0-0.6); ABS Neutrophils 9.4 10^3/ul (1.5-7.7); ABS Nucleated RBC 0 10^3/ul; Eosinophil % 0.5 % (0-6); Hematocrit 26 % (35-47); Hemoglobin 8.3 g/dl (12.0-16.0); Lymphocyte % 32.1 % (25-47); Mean Corpuscular HGB Conc 32 g/dl (31-36); Mean Corpuscular Hemoglobin 29 pg (27-31); Mean Corpuscular Volume 92 fL (80-97); Mean Platelet Volume 9.2 um3 (7.4-10.4); Nucleated Red Blood Cells % 0.3; Platelet Count 173 10^3/ul (150-450); Red Blood Count 2.86 10^6/ul (4.0-5.4); Red Cell Distribution Width 17 % (10.5-15); White Blood Count 15.5 10^3/ul (3.5-10.8)
[2017-10-29 04:27] LABS: INR 1.25 (0.77-1.02)
[2017-10-29] MEDS ORDERED: Ondansetron INJ* 2 MG/ML VIAL IV ONE (05:47)
[2017-10-29] MEDS ORDERED: Ondansetron INJ* 2 MG/ML VIAL ONE (05:48)
[2017-10-29] MEDS ORDERED: Pantoprazole IV* 80 MG in NS 0.9% 250 ML* 250 ML IVPB SCH (06:00)
--- NOTE | 2017-10-29 06:07 | ED ---
[place] Sixian, scribed for Camilo Jamil MD on 10/29/17 at 0414 . Complex/Multi-Sys Presentation - HPI Summary HPI Summary: This patient is a 62 year old F BIBA to ED with a chief complaint of vomiting since 0200 today. Patient denies any pain 0/10. Pt states she has noticed dark colored vomit at onset. Patient reports weakness, dizziness, nausea, vomiting blood. Patient denies abdominal pain, ARANGO, blurred vision. Pt denies any change in color to stools. - History Of Current Complaint Chief Complaint: EDGIBleed Time Seen by Provider: 10/29/17 04:03 Hx Obtained From: Patient Onset/Duration: Sudden Onset, Lasting Hours, Still Present Aggravating Factor(s): movement Alleviating Factor(s): nothing Associated Signs And Symptoms: Positive: Other - Patient reports weakness, dizziness, nausea, vomiting blood. Patient denies abdominal pain, ARANGO, blurred vision. - Allergies/Home Medications Allergies/Adverse Reactions: Allergies Allergy/AdvReac Type Severity Reaction Status Date / Time No Known Allergies Allergy Verified 01/29/17 22:34 PMH/Surg Hx/FS Hx/Imm Hx Endocrine/Hematology History: Reports: Hx Diabetes - type 2 Cardiovascular History: Reports: Hx Hypercholesterolemia, Hx Hypertension Denies: Hx Angina, Hx Coronary Artery Disease, Hx Myocardial Infarction, Hx Valvular Heart Disease Respiratory History: Reports: Hx Asthma Denies: Hx Chronic Obstructive Pulmonary Disease (COPD) GI History: Reports: Other GI Disorders History: Denies: Hx Dialysis Musculoskeletal History: Reports: Other Musculoskeletal History - rotator cuff repair Sensory History: Reports: Hx Contacts or Glasses Denies: Hx Hearing Aid Opthamlomology History: Reports: Hx Contacts or Glasses - Cancer History Hx Chemotherapy: No Hx Radiation Therapy: No Infectious Disease History: No Infectious Disease History: Reports: Hx Hepatitis - hypercholesterolemia Denies: Traveled Outside the [place] in Last 30 Days - Family History Known Family History: Positive: Diabetes - Social History Alcohol Use: Rare Substance Use Type: Reports: None Smoking Status (MU): Never Smoked Tobacco Review of Systems Negative: Blurred Vision Positive: Vomiting, Nausea. Negative: Abdominal Pain Musculoskeletal: Other - weakness Neurological: Other - dizziness Negative: Headache All Other Systems Reviewed And Are Negative: Yes Physical Exam - Summary Physical Exam Summary: Appearance: Well-appearing, no distress, Well-nourished Skin: Warm, color reflects adequate perfusion Head: Normal Head/Face inspection Eyes: Conjunctiva pale ENT: Normal inspection Neck: Supple, no nodes, Respiratory: Lungs clear, Normal breath sounds, no respiratory distress Cardio: RRR, No murmur, pulses normal, brisk capillary refill Abdomen: soft, nontender, no guarding, no rebound Bowel sounds: present Musculoskeletal: Strength Intact/ ROM intact. No calf tenderness. No edema. Neuro: Alert, muscle tone normal, facial symmetry, speech normal, sensory/motor intact Psychological: Normal Triage Information Reviewed: Yes Vital Signs On Initial Exam: Initial Vitals BP 146/61 10/29/17 04:00 Vital Signs Reviewed: Yes Diagnostics - Vital Signs Vital Signs Temp Pulse Resp BP Pulse Ox 10/29/17 04:02 104 10 100 10/29/17 04:01 96.2 F 109 11 135/66 100 10/29/17 04:00 146/61 - Laboratory Lab Results: Lab Results 10/29/17 10/29/17 10/29/17 Range/Units 03:50 03:50 03:50 WBC 15.5 H (3.5-10.8) 10^3/ul RBC 2.86 L (4.0-5.4) 10^6/ul Hgb 8.3 L (12.0-16.0) g/dl Hct 26 L (35-47) % MCV 92 (80-97) fL MCH 29 (27-31) pg MCHC 32 (31-36) g/dl RDW 17 H (10.5-15) % Plt Count 173 (150-450) 10^3/ul MPV 9.2 (7.4-10.4) um3 Neut % (Auto) 60.6 (38-83) % Lymph % (Auto) 32.1 (25-47) % [place] % (Auto) 6.2 (0-7) % Eos % (Auto) 0.5 (0-6) % Baso % (Auto) 0.6 (0-2) % Absolute Neuts (auto) 9.4 H (1.5-7.7) 10^3/ul Absolute Lymphs (auto) 5.0 H (1.0-4.8) 10^3/ul Absolute Monos (auto) 1.0 H (0-0.8) 10^3/ul Absolute Eos (auto) 0.1 (0-0.6) 10^3/ul Absolute Basos (auto) 0.1 (0-0.2) 10^3/ul Absolute Nucleated RBC 0 10^3/ul Nucleated RBC % 0.3 INR (Anticoag Therapy) 1.25 H (0.77-1.02) APTT 29.4 (26.0-36.3) seconds Sodium 134 (133-145) mmol/L Potassium 4.2 (3.5-5.0) mmol/L Chloride 101 (101-111) mmol/L Carbon Dioxide 18 L (22-32) mmol/L Anion Gap 15 H (2-11) mmol/L BUN 41 H (6-24) mg/dL Creatinine 0.74 (0.51-0.95) mg/dL Est GFR ( Amer) 101.6 (>60) Est GFR (Non-Af Amer) 79.0 (>60) BUN/Creatinine Ratio 55.4 H (8-20) Glucose 370 H (70-100) mg/dL Calcium 9.4 (8.6-10.3) mg/dL Total Bilirubin 0.40 (0.2-1.0) mg/dL AST 20 (13-39) U/L ALT 19 (7-52) U/L Alkaline Phosphatase 47 (34-104) U/L Total Protein 7.0 (6.4-8.9) g/dL Albumin 3.9 (3.2-5.2) g/dL Globulin 3.1 (2-4) g/dL Albumin/Globulin Ratio 1.3 (1-3) Lipase 21 (11.0-82.0) U/L Blood Type Antibody Screen 10/29/17 Range/Units 03:50 WBC (3.5-10.8) 10^3/ul RBC (4.0-5.4) 10^6/ul Hgb (12.0-16.0) g/dl Hct (35-47) % MCV (80-97) fL MCH (27-31) pg MCHC (31-36) g/dl RDW (10.5-15) % Plt Count (150-450) 10^3/ul MPV (7.4-10.4) um3 Neut % (Auto) (38-83) % Lymph % (Auto) (25-47) % [place] % (Auto) (0-7) % Eos % (Auto) (0-6) % Baso % (Auto) (0-2) % Absolute Neuts (auto) (1.5-7.7) 10^3/ul Absolute Lymphs (auto) (1.0-4.8) 10^3/ul Absolute Monos (auto) (0-0.8) 10^3/ul Absolute Eos (auto) (0-0.6) 10^3/ul Absolute Basos (auto) (0-0.2) 10^3/ul Absolute Nucleated RBC 10^3/ul Nucleated RBC % INR (Anticoag Therapy) (0.77-1.02) APTT (26.0-36.3) seconds Sodium (133-145) mmol/L Potassium (3.5-5.0) mmol/L Chloride (101-111) mmol/L Carbon Dioxide (22-32) mmol/L Anion Gap (2-11) mmol/L BUN (6-24) mg/dL Creatinine (0.51-0.95) mg/dL Est GFR ( Amer) (>60) Est GFR (Non-Af Amer) (>60) BUN/Creatinine Ratio (8-20) Glucose (70-100) mg/dL Calcium (8.6-10.3) mg/dL Total Bilirubin (0.2-1.0) mg/dL AST (13-39) U/L ALT (7-52) U/L Alkaline Phosphatase (34-104) U/L Total Protein (6.4-8.9) g/dL Albumin (3.2-5.2) g/dL Globulin (2-4) g/dL Albumin/Globulin Ratio (1-3) Lipase (11.0-82.0) U/L Blood Type A Positive Antibody Screen Negative Result Diagrams: 10/29/17 03:50 10/29/17 03:50 Lab Statement: Any lab studies that have been ordered have been reviewed, and results considered in the medical decision making process. Re-Evaluation - Re-Evaluation First Eval Re-Evaluation Time: 05:39 Change: Improved Comment: Pt resting comfortably in bed. pt hemodynamically stable. NGT placed with coffe grounds suctioned. Pt continues to have no abdominal pain or discomfort. Complex Multi-Symp Course/Dx Assessment/Plan: Pt with UGI with GBS score -11. pt will require GI consult and likely Endoscopy. Plan for continuous monitoring and transfer to [facility] for further GI evaluation. - Diagnoses Differential Diagnoses/HQI/PQRI: Metabolic Abnormality, Other - Gastritis, GI bleed, anemia, esophagitis, malignancy, kyra-yesi tear Provider Diagnoses: Upper GI bleed - Physician Notifications Discussed Care Of Patient With: Dr. Maldonado Time Discussed With Above Provider: 05:18 Instructed by Provider To: Transfer - Consulted Dr. Maldonado who will accept pt at the adult ER at [facility]. Reason For Transfer: Specialty or service not available at [facility]. Discharge - Sign-Out/Discharge Documenting (check all that apply): Discharge - Discharge Plan Condition: Stable Disposition: TRANS HIGHER LVL OF CARE FAC Referrals: Julianne Pinto MD [Primary Care Provider] - Additional Instructions: RETURN TO THE EMERGENCY DEPARTMENT FOR CHANGING OR WORSENING SYMPTOMS. - Billing Disposition and Condition Condition: STABLE Disposition: EMTALA The documentation as recorded by the David rodriguez Sixian accurately reflects the service I personally performed and the decisions made by , Camilo Jamil MD.
[2017-10-29 07:05] VITALS: BP 171/74
--- NOTE | 2017-10-29 07:35 | RAD ---
HISTORY: Chest pain, GI bleed COMPARISONS: January 29, 2017 VIEWS: 1: frontal portable view of the chest at 5:20 AM FINDINGS: LINES AND TUBES: A gastric tube is noted, with the tip in the left upper quadrant in a prepyloric position.. CARDIOMEDIASTINAL SILHOUETTE: The cardiomediastinal silhouette is normal for portable technique. PLEURA: The costophrenic angles are sharp. No pleural abnormalities are noted. LUNG PARENCHYMA: The lungs are clear. ABDOMEN: The upper abdomen is clear. There is no subphrenic gas. BONES AND SOFT TISSUES: No bone or soft tissue abnormalities are noted. IMPRESSION: LINES AND TUBES ABOVE. NO ACTIVE CARDIOPULMONARY DISEASE.
== END 2017-10-29 07:08 | disposition short-term general hospital (02) ==
LOC: ED 03:53
DX: K92.2 Gastrointestinal hemorrhage, unspecified (principal); R53.1 Weakness; R42 Dizziness and giddiness; Z93.1 Gastrostomy status; R11.2 Nausea with vomiting, unspecified; E11.9 Type 2 diabetes mellitus without complications; Z79.84 Long term (current) use of oral hypoglycemic drugs; Z79.82 Long term (current) use of aspirin; E78.00 Pure hypercholesterolemia, unspecified; I10 Essential (primary) hypertension; J45.909 Unspecified asthma, uncomplicated
CPT/HCPCS: 36415; 71045; 80053; 83690; 85025; 85610; 85730; 86850; 86900; 86901; 96374; 96375; 99285; J2405

== ENCOUNTER 2018-03-08 06:00 | Day surgery (SDC) | payer OTHER ==
--- NOTE | 2018-03-06 21:17 | HP ---
CC: Dr. Cl Smith; Dr. Negrito Cedeno; Dr. Darek Carrizales; Dr. Julianne Pinto; Dr. Ruth Ann Parsons at [facility] * ADMITTING HISTORY AND PHYSICAL: DATE OF ADMISSION: 03/08/18 ADMITTING DIAGNOSES: 1. Hematuria. 2. Bladder lesions. PLANNED PROCEDURE: Cystoscopy, excision, biopsy and fulguration of bladder lesions. SURGEON: Dr. Chamorro. DIAGNOSIS: Bladder lesions. HISTORY OF PRESENT ILLNESS: Irasema Moreira is a 62-year-old nonsmoker who was seen for persistent bladder lesions. She had previously undergone cystoscopy last year and had noticed 2 areas in the right lateral wall with hyperemic changes. At that time, it was unclear whether this represented inflammation versus neoplasm. She recently underwent followup cystoscopy and was noted to have the same 2 areas in the right lateral wall, which may represent focal transitional cell carcinoma or carcinoma in situ. PAST MEDICAL HISTORY: Significant for: 1. Diabetes mellitus. 2. Cirrhosis. MEDICATIONS ON ADMISSION: 1. Amitriptyline 25 mg a day. 2. Aspirin 81 mg a day. 3. Cartia XT 120 mg a day. 4. Coreg 12.5 mg a day. 5. Keflex 500 mg every other day. 6. Lexapro 10 mg a day. 7. Glipizide 2.5 mg extended release. 8. Insulin as indicated 48 units nightly. 9. Isosorbide 30 mg daily. 10. Metformin 750 mg daily. 11. Metoprolol 25 mg daily. 12. Protonix 40 mg daily. 13. Crestor 10 mg daily. 14. Spironolactone 25 mg daily. ALLERGIES: No known drug allergies. PHYSICAL EXAMINATION GENERAL: Reveals a pleasant healthy-appearing lady. VITAL SIGNS: Blood pressure is 134/62, pulse 80 per minute, oxygen saturation 97% on room air. LUNGS: Clear bilaterally. CARDIOVASCULAR: Regular rate and rhythm. S1, S2. ABDOMEN: Soft without masses. IMPRESSION: A 62-year-old lady with persistent bladder lesions as described above. PLAN: Planned procedures are cystoscopy, excision biopsy and fulguration of bladder lesion. [id number]/[facility] #: [id number] [facility]
[~2018-03-08 06:00] MED LIST: Buffered Lidocaine 0.9% SYRIN* 5 ML/SYR SYRINGE INTRADERM ONE; Sodium Citrate/Citric Acid* 15 ML UDC PO ONE
[2018-03-08] MEDS ORDERED: Sodium Citrate/Citric Acid* 15 ML UDC ONE (06:20)
[2018-03-08] MEDS ORDERED: cefTRIAXone(*) 2 GM ADDV.VIAL IVPB ONE (06:20)
[2018-03-08] MEDS ORDERED: Insulin LISPRO* 1 UNITS UNIT SUBCUT ONE (07:01)
[2018-03-08] MEDS ORDERED: fentaNYL* 50 MCG/ML 2 ML VIAL (100 MCG VIAL) ONE (07:21)
[2018-03-08] MEDS ORDERED: Metoclopramide IV* 5 MG/ML 2 ML VIAL ONE (07:22)
[2018-03-08] MEDS ORDERED: Ondansetron INJ* 2 MG/ML VIAL ONE (07:22)
[2018-03-08] MEDS ORDERED: fentaNYL* 50 MCG/ML 2 ML VIAL (100 MCG VIAL) IV PRN (08:29)
[2018-03-08] MEDS ORDERED: Naloxone* 0.4 MG/ML 1 ML VIAL IV PRN (08:29)
[2018-03-08 09:30] VITALS: BP 132/64
--- NOTE | 2018-03-09 00:32 | OP ---
CC: Dr. Julianne Pinto; Dr. Darek Carrizales * DATE OF OPERATION: 03/08/18 - [facility] DATE OF : 51 SURGEON: Dr. Chamorro. ANESTHESIOLOGIST: Dr. Colvin. ANESTHESIA: General. PRE-OP DIAGNOSES: 1. Hematuria. 2. Bladder lesion. POST-OP DIAGNOSES: 1. Hematuria. 2. Bladder lesion. OPERATIVE PROCEDURE: Cystoscopy, excision biopsies and fulguration of bladder lesions (2 to 3 cm). COMPLICATIONS: None. BLOOD LOSS: Approximately 50 cc. SPECIMEN: Bladder lesions right lateral wall of bladder. INDICATIONS: Irasema Moreira is a 62-year-old lady who has had the above described lesions noted on repeated cystoscopies. She has been treated for urinary tract infections and the lesions persist and she is now being brought in for excision biopsies and fulguration. OPERATIVE FINDINGS: 1. Third-degree prolapse. 2. 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 POSTOPERATIVE CONDITION: Stable. DESCRIPTION OF PROCEDURE: After induction of general anesthesia, the patient was placed in dorsal lithotomy position. Sequential compression devices were in place and functioning. Initial examination revealed the third-degree prolapse. The bladder was examined. The right and left ureteral orifices are normal in position and configuration. In the right lateral wall, there were two areas with thickened raised hyperemic mucosa. Using biopsy forceps sales representative girls' apparel excision biopsies were obtained and sent for histopathology. Next, the resectoscope was introduced and the areas where the biopsies had been taken were carefully fulgurated at the edges on the base. At the end of the procedure, hemostasis was satisfactory and there was no evidence of bladder perforation. A 22-[place] Rosen was introduced without difficulty and connected to a drainage bag. The patient tolerated the procedure satisfactorily and was transferred back to the recovery area in stable condition. [id number]/[facility] #: [id number] MTDD
== END 2018-03-08 09:40 | disposition home or self-care (01) ==
LOC: OR 06:00
PROVIDERS: ATTEND Urology
DX: N32.9 Bladder disorder, unspecified (principal); R31.9 Hematuria, unspecified; E11.9 Type 2 diabetes mellitus without complications; Z79.4 Long term (current) use of insulin; Z79.84 Long term (current) use of oral hypoglycemic drugs; K74.60 Unspecified cirrhosis of liver; I10 Essential (primary) hypertension; I25.10 Atherosclerotic heart disease of native coronary artery without angina pectoris; I25.2 Old myocardial infarction; J45.909 Unspecified asthma, uncomplicated; K21.9 Gastro-esophageal reflux disease without esophagitis; M19.90 Unspecified osteoarthritis, unspecified site; D64.9 Anemia, unspecified; I85.10 Secondary esophageal varices without bleeding; N81.10 Cystocele, unspecified
CPT/HCPCS: 88305; A9270-GY; J0696; J2405; J2765; J3010